=== PATIENT | male | born 1945 | race Caucasian/White ===

== ENCOUNTER 2016-12-12 08:17 | Outpatient (CLI) | payer MEDICARE | END 2016-12-12 08:18 | disposition home or self-care (01) | DX: Z00.00 Encounter for general adult medical examination without abnormal findings (principal); R05 Cough; Z12.11 Encounter for screening for malignant neoplasm of colon; Z12.12 Encounter for screening for malignant neoplasm of rectum; Z12.39 Encounter for other screening for malignant neoplasm of breast; R33.0 Drug induced retention of urine; M79.644 Pain in right finger(s); R53.83 Other fatigue; R06.7 Sneezing; Z79.899 Other long term (current) drug therapy; I10 Essential (primary) hypertension; I34.1 Nonrheumatic mitral (valve) prolapse; Z87.11 Personal history of peptic ulcer disease; M48.06 Spinal stenosis, lumbar region; E78.3 Hyperchylomicronemia; B07.0 Plantar wart; F32.9 Major depressive disorder, single episode, unspecified; J44.9 Chronic obstructive pulmonary disease, unspecified; J84.10 Pulmonary fibrosis, unspecified ==

== ENCOUNTER 2016-12-24 08:00 | Outpatient (CLI) | payer MEDICARE | END 2016-12-24 08:01 | disposition home or self-care (01) | DX: Z00.00 Encounter for general adult medical examination without abnormal findings (principal); Z87.11 Personal history of peptic ulcer disease; Z12.11 Encounter for screening for malignant neoplasm of colon; Z12.12 Encounter for screening for malignant neoplasm of rectum; R33.0 Drug induced retention of urine; M79.644 Pain in right finger(s); R53.83 Other fatigue; R05 Cough; R06.7 Sneezing; Z79.899 Other long term (current) drug therapy; I10 Essential (primary) hypertension; I25.10 Atherosclerotic heart disease of native coronary artery without angina pectoris; I24.1 Dressler's syndrome; M48.06 Spinal stenosis, lumbar region; E78.3 Hyperchylomicronemia; B07.0 Plantar wart; F32.9 Major depressive disorder, single episode, unspecified ==

== ENCOUNTER 2017-01-28 08:00 | Outpatient (CLI) | payer MEDICARE | END 2017-01-28 23:59 | disposition home or self-care (01) | DX: R19.5 Other fecal abnormalities (principal) ==

== ENCOUNTER 2017-01-31 08:00 | Outpatient (CLI) | payer MEDICARE | END 2017-01-31 23:59 | DX: R19.5 Other fecal abnormalities (principal) ==

== ENCOUNTER 2017-02-04 08:00 | Outpatient (CLI) | payer MEDICARE | END 2017-02-04 08:01 | disposition home or self-care (01) | DX: R19.5 Other fecal abnormalities (principal) ==

== ENCOUNTER 2017-04-30 18:56 | Outpatient (CLI) | payer MEDICARE ==
--- NOTE | 2017-05-01 14:36 | Ultrasound Report ---
REVISED: THIS REPORT WAS ORIGINALLY SIGNED ON 05/01/2017 @ 1558 ORDERS LINKED ON 05/08/2017 BILATERAL LOWER EXTREMITY ARTERIAL DUPLEX WITH ANKLE-BRACHIAL INDICES: 2016 CLINICAL INDICATION: Leg fatigue, coldness. TECHNIQUE: Real-time sonographic vascular imaging was performed by the plating equipment tender through the bilateral lower extremities utilizing both color-flow and Doppler flow analysis. Multiple sales representative door to door static images were saved for review. RIGHT SIDE SITE PSV WAVEFORM STEN JULIA -- -- -- MAO -- -- -- SANAM -- -- -- CONCETTA -- -- -- EIA -- -- -- PIN INSERTER REGULATOR 101 Tri -- PSFA 163 Meade -- MSFA 74 Tri -- DSFA 103 Bi -- PFA 80 Meade -- POP 30 Bi -- JYOTSNA 47 Bi/Meade -- FAMILY LAW PARALEGAL 47 Bi -- PER 33 Bi/Meade -- DPA 24 Bi -- LEFT SIDE SITE PSV WAVEFORM STEN CONCETTA -- -- -- EIA -- -- -- PIN INSERTER REGULATOR 103 Bi -- PSFA 66 Meade -- MSFA 26 Meade -- DSFA 47 Meade -- PFA 169 Meade -- POP 17 Meade -- JYOTSNA 8.0 Meade -- FAMILY LAW PARALEGAL 2.3 Meade -- PER 9.2 Meade -- DPA 10.0 Meade -- SYSTOLIC PRESSURES RIGHT LEFT BRACHIAL ARTERY 131/72 130/57 POSTERIOR TIBIAL ARTERY 125/75 86/49 ANTERIOR TIBIAL ARTERY -- -- PERONEAL ARTERY -- -- ANKLE/ARM INDEX .95 .65 FINDINGS: RIGHT LEG: Waveforms are variable. Moderate calcified plaquing is again seen. There is no evidence of a focal velocity increase to suggest a hemodynamically significant arterial stenosis. LEFT LEG: Waveforms are predominately monophasic. Calcified plaque is again seen. There is no evidence of a focal velocity increase to suggest a hemodynamically significant stenosis. Moderate calcified plaquing is again seen. FRANKY on the right is normal measuring 0.95, and is decreased on the left measuring 0.65. IMPRESSION: DECREASED LEFT FRANKY, WITH PREDOMINATELY MONOPHASIC WAVEFORMS, SUGGESTIVE OF INFLOW DISEASE IN THE LEFT ILIAC SYSTEM. NO EVIDENCE OF A FOCAL HEMODYNAMICALLY SIGNIFICANT ARTERIAL STENOSIS IN EITHER LEG. MTDD
== END 2017-04-30 18:57 | disposition home or self-care (01) ==
LOC: DI 18:56
PROVIDERS: ATTEND Internal Medicine
DX: M62.81 Muscle weakness (generalized) (principal); R20.9 Unspecified disturbances of skin sensation
CPT/HCPCS: 93922; 93925

== ENCOUNTER 2017-06-28 11:52 | Outpatient (CLI) | payer MEDICARE | END 2017-06-28 11:53 | disposition home or self-care (01) | LOC: DI 11:52 | PROVIDERS: ATTEND Internal Medicine | DX: Z53.9 Procedure and treatment not carried out, unspecified reason (principal) ==

== ENCOUNTER 2017-06-28 13:18 | Outpatient (CLI) | payer MEDICARE ==
--- NOTE | 2017-06-28 13:59 | XRAY Preliminary Report ---
Exam: XR Sacrum/Coccyx IMPRESSION: No significant abnormality. [facility] SITE ID: [id number]
--- NOTE | 2017-06-28 14:15 | XRAY Report ---
EXAM: SACRUM AND COCCYX RADIOGRAPHY EXAM DATE: 06/28/2017 01:49 PM. HISTORY: Coccydynia for 2 days, no known trauma. COMPARISONS: None. TECHNIQUE: 3 views. FINDINGS: Alignment: Normal. The sacrum and coccyx are normally aligned. Bones: Normal. No fracture or bone lesion. Joints: Mild degenerative changes both sacroiliac joints. Minimal narrowing of both hip joints. Mild degenerative changes L5-S1. Soft Tissues: Unremarkable. IMPRESSION: No significant abnormality. [facility] Referring Provider Line: [phone] SITE ID: [id number]
== END 2017-06-28 13:19 | disposition home or self-care (01) ==
LOC: DI 13:18
PROVIDERS: ATTEND Internal Medicine
DX: M53.3 Sacrococcygeal disorders, not elsewhere classified (principal)
CPT/HCPCS: 72220

== ENCOUNTER 2018-01-21 16:26 | Outpatient (CLI) | payer MEDICARE ==
--- NOTE | 2018-01-21 18:14 | MRI Report ---
EXAM: LEFT SHOULDER MRI WITHOUT CONTRAST EXAM DATE: 01/21/2018 05:06 PM. CLINICAL HISTORY: Left shoulder pain. COMPARISON: 08/24/2011. TECHNIQUE: Multiplanar, multisequence T1-weighted and fluid-sensitive sequences of the shoulder witho ut contrast. Other: None. FINDINGS: Acromioclavicular Region: The acromion is postoperative undersurface type I. Patient status post [facility] ord procedure. The coracoacromial and coracoclavicular ligaments are intact. Small amount of bursal f luid is present. Glenohumeral Region: No subluxation. No effusion or loose bodies. The articular cartilage is unremark able. The glenohumeral ligaments and joint capsule are unremarkable. Bone Marrow: No fracture, marrow edema or bone lesions. Labrum: The labrum is unremarkable on this nonarthrographic study. Musculature/Rotator Cuff: Since the comparison study, repair of rotator cuff tear. Distal supraspinat us tendon is thin but intact. Some artifact present from surgical staple. Subscapularis, supraspinatu s and teres minor attachments appear normal. No proximal muscular edema or fatty atrophy. Biceps Tendon: The long head of the biceps tendon and biceps roge are intact. Other: The subcutaneous tissues are unremarkable. IMPRESSION: 1. Postoperative type I osseous acromion shape. Patient is status post Madhavi procedure. Small amoun t of bursal fluid is present. The glenohumeral joint is otherwise unremarkable. No fractures. Normal labrum. 2. Previous surgical repair of rotator cuff tear. Distal supraspinatus tendon is thin but intact. Rem ainder of the rotator cuff appears unremarkable. 3. Long head of biceps appears unremarkable as well. [facility] MUSCULOSKELETAL RADIOLOGY SECTION Referring Provider Line: [phone] SITE ID: [id number]
== END 2018-01-21 16:27 | disposition home or self-care (01) ==
LOC: DI 16:26
PROVIDERS: ATTEND Internal Medicine
DX: M25.512 Pain in left shoulder (principal)

== ENCOUNTER 2018-07-04 06:12 | Outpatient (CLI) | payer MEDICARE ==
[2018-07-04] MEDS ORDERED: IOPAMIDOL-300 100 ML VIAL ONE (06:39)
[2018-07-04] MEDS ORDERED: IOPAMIDOL-300 50 ML VIAL ONE (06:39)
[2018-07-04 06:46] LABS: CREATININE 0.8 mg/dL (0.6-1.2)
[2018-07-04] MEDS ORDERED: IOPAMIDOL-300 100 ML VIAL IVP ONE (07:51)
[2018-07-04] MEDS ORDERED: IOPAMIDOL-300 50 ML VIAL PO ONE (07:51)
--- NOTE | 2018-07-04 13:36 | CT Report ---
Procedure Date: 07/04/2018 Accession Number: [id number] / [id number] Procedure: CT - Chest W/ CPT Code: FULL RESULT: EXAM: Chest W/ DATE: 07/04/2018 7:48 AM CLINICAL HISTORY: CONFUSION,WEIGHT LOSS COMPARISON: 12/03/2013. TECHNIQUE: Routine helical CT imaging was performed through the chest. IV contrast: 100 mL Isovue 300. Reconstructions: Coronal and sagittal. In accordance with CT protocol optimization, one or more of the following dose reduction techniques were utilized for this exam: automated exposure control, adjustment of mA and/or KV based on patient size, or use of iterative reconstructive technique. FINDINGS: Lungs/Pleura: A previously 5 mm peripheral superior segment of the left lobe lung nodule has progressed to a 1.4 x 0.9 cm irregular nodule with spiculations. Other well rounded nodules in the left upper lobe measuring up to 8 mm are stable. Advanced emphysematous changes of progressed. Apical scarring has progressed. No pleural effusion or pneumothorax. Mild atherosclerosis of the aorta and moderate atherosclerosis of the coronary arteries. CT appearance suggestive of eccentric left ventricular hypertrophy. Normal caliber main pulmonary artery. No thoracic lymphadenopathy. 50% anterior loss of height with compression fracture of T8 is stable. 25% loss of height which compression fracture of T10 is stable. No aggressive osseous lesions. IMPRESSION: Interval growth of a left lung nodule now 1.4 cm, suspicious. Biopsy or PET/CT recommended. Progression of emphysema. Atherosclerotic disease including coronaries. Question eccentric left ventricular hypertrophy, correlate to cardiac status and echocardiogram if applicable. Stable thoracic compression fractures, T8 and T10. [facility]
--- NOTE | 2018-07-04 13:41 | CT Report ---
Procedure Date: 07/04/2018 Accession Number: [id number] / [id number] Procedure: CT - Head W/O CPT Code: FULL RESULT: EXAM: Head W/O DATE: 07/04/2018 7:48 AM CLINICAL HISTORY: CONFUSION,WEIGHT LOSS COMPARISON: None. TECHNIQUE: Multiaxial CT images were obtained from the foramen magnum to the vertex. IV contrast: None. Reformats: Coronal. In accordance with CT protocol optimization, one or more of the following dose reduction techniques were utilized for this exam: automated exposure control, adjustment of mA and/or KV based on patient size, or use of iterative reconstructive technique. FINDINGS: Parenchyma: No intraparenchymal hemorrhage. No evidence of midline shift, or CT findings of infarction. Goins-white differentiation is distinct. Extraaxial Spaces: Normal for age. No subdural or epidural collections identified. Ventricles: Normal in size and position. Sinuses: Asymmetric sinusitis including mucoperiosteal thickening, demineralization and complete opacification of the right maxillary sinus with extension to the ethmoid air cells. The left maxillary sinus and frontal sinuses as well as sphenoid sinuses are essentially spared. Bones: No evidence of fracture or calvarial defect. Other: None. IMPRESSION: No intra-axial or extra-axial hemorrhage and no midline shift or significant mass effect. Markedly asymmetric opacification of the sinuses, direct visualization to exclude a mass lesion is recommended. [facility]
--- NOTE | 2018-07-04 13:49 | CT Report ---
Procedure Date: 07/04/2018 Accession Number: [id number] / [id number] Procedure: CT - Abdomen/Pelvis W/ CPT Code: FULL RESULT: EXAM: Abdomen/Pelvis W/ DATE: 07/04/2018 7:48 AM CLINICAL HISTORY: CONFUSION,WEIGHT LOSS COMPARISON: 07/30/2011. TECHNIQUE: Routine helical CT imaging was performed through the abdomen and pelvis. IV contrast: 100 mL of Isovue 300.. Enteric contrast: Yes. Reconstructions: Coronal and sagittal. In accordance with CT protocol optimization, one or more of the following dose reduction techniques were utilized for this exam: automated exposure control, adjustment of mA and/or KV based on patient size, or use of iterative reconstructive technique. FINDINGS: The liver, gallbladder, adrenal glands, kidneys, spleen and pancreas appear unremarkable with the exception of a left renal hypodensity which is too small to characterize. There is advanced abdominal atherosclerotic disease including focal ectasia of up to 2.6 cm infrarenally. There is no free fluid or free air. There is no bowel obstruction. There is no lymphadenopathy. There is no pelvic mass. IMPRESSION: Abdominal atherosclerotic disease with infrarenal ectatic aorta, up to 2.6 cm. [facility]
== END 2018-07-04 06:13 | disposition home or self-care (01) ==
LOC: LAB 06:12
PROVIDERS: ATTEND Internal Medicine
DX: R63.4 Abnormal weight loss (principal); R41.0 Disorientation, unspecified; I77.811 Abdominal aortic ectasia; I65.23 Occlusion and stenosis of bilateral carotid arteries; R91.1 Solitary pulmonary nodule; J43.9 Emphysema, unspecified
CPT/HCPCS: 36415; 70450; 71260; 74177; 82565; Q9967

== ENCOUNTER 2018-10-28 11:20 | Emergency (ER) | payer MEDICARE ==
[2018-10-28 12:05] LABS: BASOPHILS # (AUTO) 0.1 10^3/uL (0.0-0.1); BASOPHILS % (AUTO) 1.2 %; EOSINOPHILS # (AUTO) 0.7 10^3/uL (0.0-0.7); EOSINOPHILS % (AUTO) 7.7 %; HGB - HEMOGLOBIN 12.9 g/dL (14.0-18.0); LYMPHOCYTES # (AUTO) 1.8 10^3/uL (1.5-3.5); LYMPHOCYTES % (AUTO) 18.9 %; MEAN CORPUSCULAR HEMOGLOBIN 31.8 pg (27.0-31.0); MEAN CORPUSCULAR HGB CONC 34.7 g/dL (32.0-36.0); MEAN CORPUSCULAR VOLUME 91.8 fL (80.0-94.0); MEAN PLATELET VOLUME 6.7 fL (7.4-11.4); MONOCYTES # (AUTO) 0.8 10^3/uL (0.0-1.0); MONOCYTES % (AUTO) 8.5 %; NEUTROPHILS % (AUTO) 63.7 %; PLT - PLATELET COUNT 354 10^3/uL (130-450); RED BLOOD COUNT 4.06 10^6/uL (4.70-6.10); RED CELL DISTRIBUTION WIDTH 14.7 % (12.0-15.0); WHITE BLOOD COUNT 9.4 x10^3/uL (4.8-10.8)
[2018-10-28 12:21] LABS: ALBUMIN 3.5 g/dL (3.2-5.5); ALBUMIN/GLOBULIN RATIO 0.9 (1.0-2.2); BILIRUBIN,TOTAL 0.8 mg/dL (0.2-1.0); CALCIUM 8.9 mg/dL (8.5-10.3); CREATININE 0.9 mg/dL (0.6-1.2); TOTAL PROTEIN 7.3 g/dL (6.7-8.2)
--- NOTE | 2018-10-28 12:31 | XRAY Report ---
Reason: soa/ chest pain Procedure Date: 10/28/2018 Accession Number: [id number] / [id number] Procedure: XR - Chest 2 View X-Ray CPT Code: 16140 FULL RESULT: EXAM: CHEST RADIOGRAPHY EXAM DATE: 10/28/2018 12:07 PM. CLINICAL HISTORY: Soa/ chest pain. COMPARISON: 12/12/2016. TECHNIQUE: 2 views. FINDINGS: Lungs/Pleura: Hyperlucent upper lungs compatible with COPD again seen. Biapical scarring again noted. New left midlung perihilar consolidation is seen with a subtle associated opacity. Small left pleural effusion is also seen, new compared to prior. No pneumothorax. Mediastinum: Stable heart size and mediastinum. Atheromatous calcification of the aortic arch. Other: None. IMPRESSION: 1. New left perihilar consolidation and adjacent mid lung subtle opacity could reflect infection. Follow-up to radiographic resolution is recommended. 2. New small left pleural effusion also seen. 3. Unchanged COPD. [facility]
[2018-10-28] MEDS ORDERED: MORPHINE 2 MG/ML CARPUJECT IVP STA (12:35)
--- NOTE | 2018-10-28 12:37 | ED Physician Documentation ---
PD HPI CHEST PAIN - Stated complaint Stated Complaint: CHEST PX/POST STENT - Chief complaint Chief Complaint: Cardiac - History obtained from History obtained from: Patient, Family () - History of Present Illness Timing - onset: Today (This is a 73-year-old gentleman who on the 15th of this month had a partial left lower lobe lobectomy done using minimally invasive means by Dr. Cynthia Aguirre. He had known conservatively managed coronary disease but it sounds like he had some sort of OR and was stented to the right coronary artery for a 97% lesion the next day by Dr. Phelps. He has been home for a week, his pain was always controlled by oxycodone but today it was uncontrolled and increased and more short of breath and fatigue and more of a pressure on the left chest and he was referred in by his instrument specialist) Review of Systems Ten Systems: 10 systems reviewed and negative Constitutional: reports: Fatigue. denies: Fever, Chills Cardiac: reports: Chest pain / pressure. denies: Palpitations, Pedal edema, Calf pain Respiratory: reports: Dyspnea. denies: Cough, Hemoptysis, Wheezing PD PAST MEDICAL HISTORY - Past Medical History Cardiovascular: Hypertension Respiratory: COPD, Other Endocrine/Autoimmune: None GI: GERD, Ulcers : None Psych: Depression Musculoskeletal: Osteoarthritis, Scoliosis, Chronic back pain Derm: None - Past Surgical History General: Colonoscopy Ortho: Rotator cuff repair, Spine surgery - Present Medications Home Medications: Ambulatory Orders Medication Instructions Recorded Confirmed Acetaminophen [Tylenol Extra 500 mg PO TID 08/12/14 08/12/14 Strength] Ginseng [Panax Ginseng] 100 mg PO DAILY 08/12/14 08/12/14 Lisinopril 5 mg PO DAILY 08/12/14 08/12/14 Multivit-Min/FA/Lycopene/Lut 1 cap PO DAILY 08/12/14 08/12/14 [Centrum Silver Tablet] Omeprazole 40 mg PO BID 08/12/14 08/12/14 Saw Holder 80 mg PO DAILY 08/12/14 08/12/14 buPROPion [Wellbutrin Sr] 100 mg PO BID 08/12/14 08/12/14 diphenhydrAMINE [Benadryl] 25 mg PO Q4-6H 08/12/14 08/12/14 raNITIdine [Zantac] 150 mg PO DAILY 08/12/14 08/12/14 traZODone [Desyrel] 50 mg PO ONCE 08/12/14 08/12/14 Levofloxacin [Levaquin] 750 mg PO DAILY #7 tablet 10/28/18 - Allergies Allergies/Adverse Reactions: Allergies Allergy/AdvReac Type Severity Reaction Status Date / Time NSAIDS (Non-Steroidal AdvReac Nausea Verified 10/28/18 11:42 Anti-Inflamma PD ED PE NORMAL - Vitals Vital signs reviewed: Yes - General General: Alert and oriented X 3, No acute distress - HEENT HEENT: PERRL, EOMI - Neck Neck: Supple, no meningeal sign, No bony TTP - Cardiac Cardiac: RRR, No murmur - Respiratory Respiratory: No respiratory distress, Clear bilaterally, Other (Surgical incisions on the left side is sutured without evidence of infection.) - Abdomen Abdomen: Soft, Non tender - Derm Derm: Normal color, Warm and dry, No rash - Extremities Extremities: No edema, No calf tenderness / cord - Neuro Neuro: Alert and oriented X 3, Normal speech Results - Vitals Vitals: Vital Signs - 24 hr 10/28/18 11:39 Temperature 36.4 C L Heart Rate 95 Respiratory 16 Rate Blood Pressure 125/69 O2 Saturation 99 Oxygen O2 Source Room air - EKG (time done) 1131 Rate: Rate (enter#) (62) Rhythm: NSR (with PVC) [place]: Normal Intervals: Normal [place] QRS: Normal Ischemia: Q waves (anterior), Non specific changes Computer interpretation: Agree with computer - Labs Labs: Laboratory Tests 10/28/18 10/28/18 10/28/18 11:50 11:50 11:50 WBC 9.4 RBC 4.06 L Hgb 12.9 L Hct 37.3 L MCV 91.8 MCH 31.8 H MCHC 34.7 RDW 14.7 Plt Count 354 MPV 6.7 L Neut # (Auto) 6.0 Lymph # (Auto) 1.8 [place] # (Auto) 0.8 Eos # (Auto) 0.7 Baso # (Auto) 0.1 Absolute Nucleated RBC 0.01 Nucleated RBC % 0.1 Sodium 131 L Potassium 4.0 Chloride 98 L Carbon Dioxide 26 Anion Gap 7.0 BUN 12 Creatinine 0.9 Estimated GFR (MDRD) 83 L Glucose 108 H Calcium 8.9 Total Bilirubin 0.8 AST 19 ALT 19 Alkaline Phosphatase 74 Troponin I < 0.04 Total Protein 7.3 Albumin 3.5 Globulin 3.8 Albumin/Globulin Ratio 0.9 L Lipase 29 10/28/18 12:55 WBC RBC Hgb Hct MCV MCH MCHC RDW Plt Count MPV Neut # (Auto) Lymph # (Auto) [place] # (Auto) Eos # (Auto) Baso # (Auto) Absolute Nucleated RBC Nucleated RBC % Sodium Potassium Chloride Carbon Dioxide Anion Gap BUN Creatinine Estimated GFR (MDRD) Glucose Calcium Total Bilirubin AST ALT Alkaline Phosphatase Troponin I < 0.04 Total Protein Albumin Globulin Albumin/Globulin Ratio Lipase - Rads (name of study) 2v chest Radiology: EMP read contemporaneously (small L pleural effusion) CTA chest Radiology: EMP read contemporaneously (No PE, emphysema, postoperative changes with tissue density that may Represent normal postoperative changes or infiltrate with consolidation in the left lower lobe of the lung and a small left pleural effusion.) PD MEDICAL DECISION MAKING - ED course ED course: 73-year-old gentleman with increased postoperative pain. He does have coronary disease and was stented recently. PE is also in the differential. I spoke with his instrument specialist, Dr. Phelps would like a 4-hour troponin and if negative does not need anything else from a coronary perspective today. The CTA of the chest does not show PE. There is a potential left lower lobe pneumonia. He has been coughing a little more over the last day but he does not have a white count. We will start him on antibiotics. Departure - Departure Clinical Impression: Post-operative pain Chest pain Qualifiers: Chest pain type: chest pain on breathing Qualified Code(s): R07.1 - Chest pain on breathing Pneumonia Qualifiers: Pneumonia type: due to unspecified organism Laterality: left Lung location: lower lobe of lung Qualified Code(s): J18.1 - Lobar pneumonia, unspecified organism Condition: Good Record reviewed to determine appropriate education?: Yes Instructions: Pneumonia Dc, ED Chest Pain Atypical Unkn Cause Prescriptions: Levofloxacin [Levaquin] 750 mg PO DAILY #7 tablet Comments: Call your doctor to arrange a follow-up appointment, make the next available appointment. In the interim, return anytime if worse or if new symptoms develop.
[2018-10-28] MEDS ORDERED: IOVERSOL 320 100 ML VIAL IVP ONE ×2 (13:09→17:33)
--- NOTE | 2018-10-28 14:17 | CT Report ---
Reason: Chest pain, post LLL surgery Procedure Date: 10/28/2018 Accession Number: [id number] / [id number] Procedure: CT - Chest Angio (PE) CPT Code: FULL RESULT: EXAM: CT ANGIOGRAM CHEST EXAM DATE: 10/28/2018 01:34 PM. CLINICAL HISTORY: Chest pain, post LLL surgery. COMPARISON: 12/03/2013. TECHNIQUE: Routine helical imaging was performed through the chest in the pulmonary arterial phase. IV Contrast: ISOVUE 300 80mL. Reconstructions: Coronal 3-D MIP reconstructions.Sagittal and coronal. In accordance with CT protocol optimization, one or more of the following dose reduction techniques were utilized for this exam: automated exposure control, adjustment of mA and/or KV based on patient size, or use of iterative reconstructive technique. FINDINGS: Pulmonary Arteries: Diagnostic quality: Adequate through the segmental arteries. No evidence for acute or chronic pulmonary emboli. Lungs/Pleura: Extensive emphysematous changes are noted bilaterally there are interval postoperative changes of the left lower lobe of the lung. Increased soft tissue density is noted adjacent to the surgical robert. This may represent an infiltrate or postop changes. Consolidation of the left lower lobe of the lung is noted. There is a small left pleural effusion. No pneumothorax is seen. There is no evidence of a right pleural effusion. Mediastinum: No mediastinal mass is identified. There is atherosclerosis of the aorta and coronary arteries. Upper Abdomen: The visualized upper abdominal organs demonstrate a normal noncontrast CT appearance. IMPRESSION: No evidence of a pulmonary embolus. Emphysematous changes of the lungs. Postoperative changes of the left lower lobe of the lung with increased soft tissue density adjacent to the suture line that may represent normal postop changes or an infiltrate. Consolidation in the left lower lobe of the lung. Small left pleural effusion. [facility]
[2018-10-28] MEDS ORDERED: levoFLOXacin 250 MG TABLET PO STA (14:44)
[2018-10-28 16:43] VITALS: BP 118/77
== END 2018-10-28 17:10 | disposition home or self-care (01) ==
LOC: ED 11:20
DX: G89.18 Other acute postprocedural pain (principal); R07.1 Chest pain on breathing; R94.31 Abnormal electrocardiogram [ECG] [EKG]; J18.1 Lobar pneumonia, unspecified organism; I25.10 Atherosclerotic heart disease of native coronary artery without angina pectoris; I10 Essential (primary) hypertension; Z90.2 Acquired absence of lung [part of]; Z95.5 Presence of coronary angioplasty implant and graft
CPT/HCPCS: 36415; 71046; 71275; 80053; 83690; 84484; 85025; 93005; 96374; 99284; A9270; Q9967

== ENCOUNTER 2018-12-17 10:29 | Outpatient (CLI) | payer MEDICARE | END 2018-12-17 10:30 | disposition home or self-care (01) | LOC: NS 10:29 | PROVIDERS: ATTEND Internal Medicine | DX: Z71.3 Dietary counseling and surveillance (principal); R63.4 Abnormal weight loss | CPT/HCPCS: 97802 ==

== ENCOUNTER 2018-12-26 11:29 | Outpatient (CLI) | payer MEDICARE ==
--- NOTE | 2018-12-26 15:03 | XRAY Report ---
Reason: PAIN L ANTERIOR RIBS Procedure Date: 12/26/2018 Accession Number: [id number] / [id number] Procedure: XR - Chest 2 View X-Ray CPT Code: 17971 FULL RESULT: EXAM: CHEST RADIOGRAPHY EXAM DATE: 12/26/2018 11:56 AM. CLINICAL HISTORY: Pain, left anterior ribs. COMPARISON: Chest 2 view 10/28/2018 11:59 AM Chest angio 10/28/2018 1:10 PM. TECHNIQUE: 2 views. FINDINGS: Lungs/Pleura: Postsurgical changes are seen in the mid left lung. No consolidative focal opacities evident. No pleural effusion. No pneumothorax. Increased lung volumes with flattened diaphragms consistent with obstructive lung disease, similar to prior. Mediastinum: Heart and mediastinal contours are unremarkable. Other: There is a questionable deformity of the posterolateral eighth and ninth ribs. Not definitely seen previously. IMPRESSION: Questionable posterolateral deformities of the left eighth and ninth ribs. Anterior ribs are not well seen. Obstructive lung disease. Consideration for rib series versus CT if imaging clarification is needed. [facility]
== END 2018-12-26 11:30 | disposition home or self-care (01) ==
LOC: DI 11:29
PROVIDERS: ATTEND Internal Medicine
DX: R07.82 Intercostal pain (principal); J44.9 Chronic obstructive pulmonary disease, unspecified
CPT/HCPCS: 71046

== ENCOUNTER 2019-03-19 16:58 | Outpatient (CLI) | payer MEDICARE ==
--- NOTE | 2019-03-20 08:24 | XRAY Report ---
Reason: RIGHT RIB PAIN,ANTERIOR Procedure Date: 03/19/2019 Accession Number: [id number] / [id number] Procedure: XR - Ribs w/PA Chest RT CPT Code: FULL RESULT: EXAM: RIGHT RIB RADIOGRAPHY EXAM DATE: 03/19/2019 05:39 PM. CLINICAL HISTORY: RIGHT RIB Pain, anterior. FOLLOW-UP POSSIBLE LEFT RIB FRACTURE. COMPARISON: CHEST 2 VIEW 12/26/2018 11:44 AM. TECHNIQUE: 1 view of the chest and 2 views of the ribs. FINDINGS: Bones: No evidence of rib fracture. Lungs: No evidence of pneumothorax. Mild bilateral basilar interstitial lung disease. Symmetric biapical scarring. No other pulmonary abnormality. Mediastinum: Heart and mediastinal contours are unremarkable. Other: Moderate S-shaped thoracolumbar scoliosis. IMPRESSION: 1. No acute cardiopulmonary abnormality. See above discussion of chronic changes. 2. No evidence of rib fracture. [facility]
== END 2019-03-19 16:59 | disposition home or self-care (01) ==
LOC: DI 16:58
PROVIDERS: ATTEND Internal Medicine
DX: R07.81 Pleurodynia (principal)

== ENCOUNTER 2019-04-09 08:37 | Outpatient (CLI) | payer MEDICARE ==
--- NOTE | 2019-04-09 10:32 | CT Report ---
Reason: SQUAMOUS CELL CARCINOMA OF LEFT LUNG Procedure Date: 04/09/2019 Accession Number: [id number] / [id number] Procedure: CT - CHEST WO CPT Code: FULL RESULT: EXAM: CT CHEST EXAM DATE: 04/09/2019 08:56 AM. CLINICAL HISTORY: Squamous cell carcinoma of left lung. COMPARISONS: CHEST ANGIO 10/28/2018 1:10 PM. TECHNIQUE: Routine helical CT imaging was performed through the chest. IV contrast: None. Reconstructions: Coronal and sagittal. In accordance with CT protocol optimization, one or more of the following dose reduction techniques were utilized for this exam: automated exposure control, adjustment of mA and/or KV based on patient size, or use of iterative reconstructive technique. FINDINGS: Lungs/Pleura: There is moderate to severe emphysema with biapical scarring and postsurgical changes in the left lower lobe. A small amount of peripheral fine interstitial thickening is seen at both lung bases without honeycombing. There are areas of pleural nodularity, most pronounced is posterior pleural thickening near the left lung apex with calcification as seen on image 31, decreased from prior and possibly postsurgical in nature. Redemonstrated are innumerable bilateral pulmonary nodules, most of which measure 5 mm or less. The following nodules appear prominent on review: 4 mm nodule near the right lung apex on image 14 series 4, stable. Right lower lobe 6 mm nodule just above the diaphragm on image 61, comparison is difficult but the finding is likely stable. Left lower lobe 0.7 x 0.8 cm nodule on image 57, previously measured as 0.5 x 0.7 cm. No recurrent mass is seen in the region of previous surgery. There is no pleural effusion, pneumothorax or lobar consolidation. Mediastinum: Severe three-vessel coronary calcifications. Moderately atherosclerotic aortic arch. No hilar or mediastinal lymphadenopathy is detected. Bones: A wedge compression fracture of T8 appears stable compared to prior. No aggressive osseous lesion is seen. Visualized Abdomen: The lowest abdominal image demonstrates an atherosclerotic abdominal aorta with ectasia. Other: None. IMPRESSION: Bilateral pulmonary nodules as described with potential interval enlargement of a 0.8 cm nodule at the left lung base. Otherwise, there is no evidence of recurrence in the region of prior surgery. Ectatic widening of the infrarenal abdominal aorta on the lowest CT image, recommend screening for abdominal aortic aneurysm. [facility]
== END 2019-04-09 08:38 | disposition home or self-care (01) ==
LOC: DI 08:37
PROVIDERS: ATTEND Physician Assistant Surgical
DX: C34.92 Malignant neoplasm of unspecified part of left bronchus or lung (principal); J43.9 Emphysema, unspecified
CPT/HCPCS: 71250

== ENCOUNTER 2019-07-21 09:26 | Outpatient (CLI) | payer MEDICARE ==
--- NOTE | 2019-07-22 09:58 | CT Report ---
Reason: MALIGNANT NEOPLASM OF LOWER OF LEFT LUNG Procedure Date: 07/21/2019 Accession Number: [id number] / [id number] Procedure: CT - CHEST WO CPT Code: FULL RESULT: EXAM: CT CHEST EXAM DATE: 07/21/2019 09:53 AM. CLINICAL HISTORY: Malignant neoplasm of lower of left lung. COMPARISONS: CHEST W/O 04/09/2019 8:52 AM CHEST ANGIO 10/28/2018 1:10 PM CHEST W/ 12/03/2013 8:52 AM CHEST W/ 07/04/2018 7:31 AM. TECHNIQUE: Routine helical CT imaging was performed through the chest. IV contrast: None. Reconstructions: Coronal and sagittal. In accordance with CT protocol optimization, one or more of the following dose reduction techniques were utilized for this exam: automated exposure control, adjustment of mA and/or KV based on patient size, or use of iterative reconstructive technique. FINDINGS: Lungs/Pleura: Stable appearance of moderate to severe centrilobular and panacinar emphysema greatest of the upper lobes. Stable parenchymal fibrosis involving the posterior aspects of the right lower lobe. Stable operative changes status post wedge resection from the superior segment of left lower lobe. Stable adjacent pleural and mediastinal thickening, likely related to radiation changes. Stable pleural-parenchymal scarring changes are noted in the apices. Stable appearance of multiple calcified peripheral pulmonary nodules (all less than 3 mm) greatest in the lung bases. There is an 8 mm oval nodule in the left lung base on image 59 series 4, corresponding to a stable 8 mm nodule seen on preoperative films dating back to 2014. Position is displaced medial/posterior compared to 2014 by interval operative/treatment changes. There is an adjacent 5 mm pulmonary nodule image 61 series 4 which is unchanged dating back to 10/28/2018 possibly also present in 2014. No new pulmonary nodules identified. Pulmonary vasculature is normal. No pericardial or pleural effusion. No pneumothorax. Mediastinum: No mediastinal masses or adenopathy. Stable calcific plaque noted origins of the great vessels. Severe three-vessel coronary artery calcium again noted. Bones: Stable anterior wedging compression T8 vertebral body. Visualized Abdomen: Stable ectasia bordering on aneurysmal dilatation of the proximal abdominal aorta at 2.9 cm. Other: None. IMPRESSION: 1. Stable exam findings as detailed including emphysema, areas of fibrosis and multiple calcific pulmonary nodules. Stable operative and treatment changes in the left lung with no evidence of recurrence. 2. Dominant 8 mm pulmonary nodule in the left lower lobe is unchanged since 2013 consistent with benign entity. Adjacent 5 mm pulmonary nodule is stable since 10/2018 and is also likely present since 2013. No new pulmonary nodules. 3. Severe three-vessel coronary artery calcium. 4. Borderline aneurysmal dilatation of the visualized proximal abdominal aorta. RADIA
== END 2019-07-21 09:27 | disposition home or self-care (01) ==
LOC: DI 09:26
PROVIDERS: ATTEND Physician Assistant Surgical
DX: Z08 Encounter for follow-up examination after completed treatment for malignant neoplasm (principal); J43.9 Emphysema, unspecified; J84.10 Pulmonary fibrosis, unspecified; R91.8 Other nonspecific abnormal finding of lung field; I25.10 Atherosclerotic heart disease of native coronary artery without angina pectoris; Z85.118 Personal history of other malignant neoplasm of bronchus and lung
CPT/HCPCS: 71250

== ENCOUNTER 2019-08-23 07:10 | Outpatient (CLI) | payer MEDICARE ==
--- NOTE | 2019-08-25 12:14 | Ultrasound Report ---
Reason: PVD W/CLAUDICATION Procedure Date: 08/23/2019 Accession Number: [id number] / [id number] Procedure: US - Duplex Aorta Complete CPT Code: FULL RESULT: EXAM: AORTIC DOPPLER ULTRASOUND EXAM DATE: 08/23/2019 07:50 AM. CLINICAL HISTORY: PVD with claudication. COMPARISON: None. TECHNIQUE: Real-time sonographic imaging of retroperitoneal vascular structures, including color-flow, Doppler flow and spectral analysis was performed by the forest pathology teacher. Multiple employee representative static images were saved for review. FINDINGS: Aorta: The abdominal aorta was adequately visualized. There is fusiform ectasia of the infrarenal aorta measuring up to 2.7 x 2.9 cm. Diffuse atherosclerotic disease of the aorta is visualized throughout. Aorta: Proximal: Sagittal AP 2.7 x 2.5 cm. Mid: Transverse 2.7 x 2.9 cm. Distal: Transverse 1.8 x 2.4 cm. Plaque visualized: Yes. Iliacs: Right Iliac: Transverse 1.1 x 1.4 cm. Left Iliac: Transverse 1.1 x 1.1 cm. Doppler: Prox Aorta PSV: 100.5 cm/sec. Mid Aorta PSV: 74.0 cm/sec. Dist Aorta PSV: 77.9 cm/sec. Prox RCIA PSV: 146.8 cm/sec. Prox LCIA PSV: 155.7 cm/sec. Iliac Vessels: The visualized proximal common iliac arteries are normal in caliber. Other: None. IMPRESSION: Abdominal atherosclerosis with ectatic infrarenal abdominal aorta, up to 2.7 x 2.9 cm. RADIA
--- NOTE | 2019-08-25 12:24 | Ultrasound Report ---
Reason: PVD W/CLAUDICATION Procedure Date: 08/23/2019 Accession Number: [id number] / [id number] Procedure: US - Duplex Lwr Ext Arterial Bilat CPT Code: FULL RESULT: EXAM: Bilateral Lower Extremity Arterial Doppler Ultrasound EXAM DATE: 08/23/2019 07:56 AM. CLINICAL HISTORY: Peripheral vascular disease with claudication. COMPARISON: DUPLEX LWR EXT ARTERIAL BILAT 04/30/2017 7:39 PM. TECHNIQUE: Real-time sonographic vascular imaging was performed by the monitoring specialist, utilizing color-flow, Doppler flow, and spectral analysis. Multiple key account representative static images were saved for review. FINDINGS: Bilateral lower extremity Doppler interrogation is performed with grayscale, color Doppler and spectral Doppler. Grayscale imaging demonstrates diffuse echogenic and hypoechoic atherosclerotic disease throughout which occupies up to at least 50% of the lumen segmentally in the right GROUND CREWMAN, right distal SFA, visually greater than 70% in the right proximal posterior tibial artery. Similar morphologically prominent plaque is seen in the left GROUND CREWMAN, at the ostium of the profunda femoris on the left, mid left SFA. All sampled vessels are patent by color Doppler. Waveforms demonstrate preserved brisk arterial upstrokes right lower extremity with loss of the diastolic flow component at the level of the dorsalis pedis artery. Waveforms in the left lower extremity question nonvisualized inflow disease and demonstrate progressive deterioration below the knee with loss of diastolic component and subsequent mild delay in arterial upstroke, tendency toward tardus parvus flow at the level of the dorsalis pedis artery. The following waveforms and peak systolic velocities in centimeters per second are recorded. RIGHT: GROUND CREWMAN: 72.9 cm/sec. Biphasic waveform. SFA Proximal: 68.3 cm/sec. Monophasic waveform. SFA Mid: 80.9 cm/sec. Biphasic waveform. SFA Distal: 86.6 cm/sec. Biphasic waveform. PFA: 76.2 cm/sec. Monophasic waveform. Popliteal: 33.6 cm/sec. Biphasic waveform. JYOTSNA Distal: 14.2 cm/sec. Biphasic waveform. HOUSE PIPING INSPECTOR Distal: 57.9 cm/sec. Biphasic waveform. Peroneal Distal: 27.2 cm/sec. Biphasic waveform. DPA Distal: 11.4 cm/sec. Monophasic waveform. LEFT: GROUND CREWMAN: 54.4 cm/sec. Biphasic waveform. SFA Proximal: 25.7 cm/sec. Monophasic waveform. SFA Mid: 15.4 cm/sec. Monophasic waveform. SFA Distal: 18.2 cm/sec. Monophasic waveform. PFA: 46.6 cm/sec. Monophasic waveform. Popliteal: 18.1 cm/sec. Monophasic waveform. JYOTSNA Distal: 21.9 cm/sec. Monophasic waveform. HOUSE PIPING INSPECTOR Distal: 22.3 cm/sec. Monophasic waveform. Peroneal Distal: 12.4 cm/sec. Monophasic waveform. DPA Distal: 17.2 cm/sec. Monophasic waveform. IMPRESSION: Preserved three-vessel patency to the ankle with multifocal stenotic lesions which visually appear greater than 50% at multiple locations. Given deteriorations of waveforms especially in the left lower extremity, if the patient is a candidate for intervention, would recommend further characterization by CTA or lower extremity angiogram bilaterally. RADIA The call report notification system was initiated by Dr. Juice Colbert at 12:21 PM on 08/25/2019. ADDENDUM: 08/25/19 13:28 The above call report findings were discussed with Aracely Baker by Dr. Juice Colbert at 01:28 PM on 08/25/2019.
== END 2019-08-23 07:11 | disposition home or self-care (01) ==
LOC: DI 07:10
PROVIDERS: ATTEND Nurse Practitioner
DX: I73.9 Peripheral vascular disease, unspecified (principal); I70.0 Atherosclerosis of aorta; I77.811 Abdominal aortic ectasia
CPT/HCPCS: 93925; 93978

== ENCOUNTER 2019-10-06 08:12 | Outpatient (CLI) | payer MEDICARE ==
[2019-10-06 08:40] LABS: BASOPHILS # (AUTO) 0.1 10^3/uL (0.0-0.1); BASOPHILS % (AUTO) 1.2 %; EOSINOPHILS # (AUTO) 0.5 10^3/uL (0.0-0.7); EOSINOPHILS % (AUTO) 8.2 %; HGB - HEMOGLOBIN 14.5 g/dL (14.0-18.0); LYMPHOCYTES # (AUTO) 1.7 10^3/uL (1.5-3.5); LYMPHOCYTES % (AUTO) 30.5 %; MEAN CORPUSCULAR HEMOGLOBIN 31.4 pg (27.0-31.0); MEAN CORPUSCULAR HGB CONC 33.4 g/dL (32.0-36.0); MEAN CORPUSCULAR VOLUME 93.9 fL (80.0-94.0); MEAN PLATELET VOLUME 9.3 fL (7.4-11.4); MONOCYTES # (AUTO) 0.8 10^3/uL (0.0-1.0); MONOCYTES % (AUTO) 13.7 %; NEUTROPHILS # (AUTO) 2.6 10^3/uL (1.5-6.6); PLT - PLATELET COUNT 202 10^3/uL (130-450); RED BLOOD COUNT 4.62 10^6/uL (4.70-6.10); RED CELL DISTRIBUTION WIDTH 13.9 % (12.0-15.0); WHITE BLOOD COUNT 5.7 x10^3/uL (4.8-10.8)
[2019-10-06] MEDS ORDERED: IOVERSOL 320 100 ML VIAL IVP ONE ×3 (08:42→12:19)
[2019-10-06 08:48] LABS: CALCIUM 9.2 mg/dL (8.5-10.3); CREATININE 0.8 mg/dL (0.6-1.2)
--- NOTE | 2019-10-06 10:28 | Ultrasound Report ---
Reason: PERIPHERAL VENOUS DISEASE Procedure Date: 10/06/2019 Accession Number: [id number] / [id number] Procedure: US - Duplex Ext Veins Left CPT Code: Final Report FULL RESULT: EXAM: LEFT LOWER EXTREMITY VENOUS ULTRASOUND EXAM DATE: 10/06/2019 09:59 AM. CLINICAL HISTORY: Peripheral venous disease. COMPARISON: None. TECHNIQUE: Real-time sonographic vascular imaging was performed by the tree chipper through the lower extremity utilizing both color-flow and Doppler spectral analysis. Multiple chain sales representative static images were saved for review. FINDINGS: Common Femoral Vein (CFV): Normal. CFV-GSV Junction: Normal. Profunda Femoral Vein (PFV): Normal. Femoral Vein (FV) Prox: Normal. Femoral Vein (FV) Mid: Normal. Femoral Vein (FV) Dist: Normal. Popliteal Vein: Normal. Posterior Tibial Veins: Normal. Peroneal Veins: Normal. Focused and limited venous reflex examination is also performed by the interpreting physician. The great saphenous vein near the juncture measures up to 0.5 cm in caliber and is easily compressible throughout. Following release of cuff compression at the thigh, there is less than 0.3 seconds of reflux, essentially no reflux in the femoral vein. Similarly, no reflux is observed in the great saphenous vein. The posterior tibial vein measures approximately 0.2 cm. Other: None. IMPRESSION: No evidence for deep venous thrombosis. No pathologic reflex in femoral or great saphenous veins as examined. RADIA
--- NOTE | 2019-10-06 12:06 | CT Report ---
Reason: PERIPHERAL ARTERIAL DISEASE Procedure Date: 10/06/2019 Accession Number: [id number] / [id number] Procedure: CT - ANGIO ABD RUNOFF W/WO - B/L CPT Code: Final Report FULL RESULT: EXAM: CT ANGIOGRAM ABDOMEN AND PELVIS, WITH BILATERAL LOWER EXTREMITY ARTERY RUNOFF EXAM DATE: 10/06/2019 10:29 AM CLINICAL HISTORY: PERIPHERAL ARTERIAL DISEASE. COMPARISON: CHEST W/O 07/21/2019 9:50 AM. TECHNIQUE: Routine helical imaging was performed through the abdomen, pelvis and bilateral lower extremities in arterial phase. IV Contrast: OPTI 320 120ML. Reconstructions: Coronal, sagittal, and 3D MIP reconstructions were performed. In accordance with CT protocol optimization, one or more of the following dose reduction techniques were utilized for this exam: automated exposure control, adjustment of mA and/or KV based on patient size, or use of iterative reconstructive technique. FINDINGS: Vascular: Ectasia of the infrarenal abdominal aorta to a maximal caliber of 2.6 cm (5/80) noted. No aneurysm. Moderate foci of mixed calcified and noncalcified plaque seen in the abdominal area. The origin of the celiac artery, SMA, renal arteries is widely patent. Probable ostial stenosis of the origin of the ANDREW secondary to atherosclerotic plaque. Probable focal >50% stenosis of the right common iliac artery secondary to calcified plaque. Atherosc buttock plaque seen in the left common iliac arteries without evidence for flow-limiting stenosis. Similarly, calcified and noncalcified plaque seen in the external iliac arteries and common femoral bilaterally without flow-limiting stenosis. High-grade stenosis of the right SFA just past its origin) 5/597) likely secondary to circumferential plaque. The proximal segment of the profunda femoris appears patent. Additional scattered foci of predominantly calcified plaque seen in the right SFA. Probable focal high-grade stenosis in the right distal SFA (5/325). No high-grade stenoses in the right popliteal artery. 3 vessel tibial runoff is seen to the level of the right ankle. Multifocal calcified plaque seen in the left SFA. There is occlusion of the mid and distal segments of the left SFA with distal reconstitution from collaterals. The left popliteal is without flow-limiting stenosis. Three-vessel left tibial runoff seen to the level of the ankle. Abdomen: Emphysema is seen at the pulmonary bases. Basilar scarring also noted. Indeterminate 9 mm left base pulmonary nodule again noted (04/24). Ill-defined 1 cm hyperenhancing hepatic segment 8 lesion (5/49) is indeterminate, possibly a perfusional anomaly. No large liver masses. Unremarkable spleen, pancreas, and adrenals. No solid renal masses or hydronephrosis. Unremarkable bowel loops without evidence for inflammation or obstruction. No pathologic intra-abdominal lymphadenopathy. Pelvis: Unremarkable urinary bladder for degree of distention. Enlarged prostate is noted. No enlarged pelvic lymph nodes. No pelvic lymphadenopathy. Extremities: Degenerative changes in the spine. No focal suspicious osseous lesions. No acute fractures are seen. IMPRESSION: 1. Occlusion of the mid and distal segments of the left SFA, with distal collateral reconstitution. 2. Foci of high-grade stenoses in the proximal and distal right SFA as described above. 3. Probable flow-limiting stenosis of the right common iliac artery. 4. Three-vessel bilateral tibial runoffs. 5. Incidental well-defined 1 cm hyperenhancing hepatic segment 8 lesion, possibly a perfusional anomaly. Dedicated liver MRI could be obtained for further evaluation on a nonurgent basis. 6. Stable indeterminate subcentimeter left base pulmonary nodule.
== END 2019-10-06 08:13 | disposition home or self-care (01) ==
LOC: DI 08:12
PROVIDERS: ATTEND Radiology Diagnostic Radiology
DX: I70.203 Unspecified atherosclerosis of native arteries of extremities, bilateral legs (principal); I87.2 Venous insufficiency (chronic) (peripheral); I25.10 Atherosclerotic heart disease of native coronary artery without angina pectoris; Z79.899 Other long term (current) drug therapy; I77.811 Abdominal aortic ectasia; R91.1 Solitary pulmonary nodule
CPT/HCPCS: 36415; 75635; 80048; 85025; 85610; 93971; Q9967

== ENCOUNTER 2020-01-06 07:27 | Outpatient (CLI) | payer MEDICARE ==
[2020-01-06 08:24] LABS: ALBUMIN 4.2 g/dL (3.2-5.5); ALBUMIN/GLOBULIN RATIO 1.4 (1.0-2.2); ALKALINE PHOSPHATASE 58 IU/L (42-121); ALT ALANINE AMINOTRANSFERASE 24 IU/L (10-60); AST ASPARTATE AMINOTRANSFERASE 29 IU/L (10-42); BILIRUBIN,TOTAL 1.1 mg/dL (0.2-1.0); BUN - BLOOD UREA NITROGEN 13 mg/dL (6-20); CALCIUM 9.2 mg/dL (8.5-10.3); CARBON DIOXIDE - CO2 26 mmol/L (21-32); CHLORIDE 99 mmol/L (101-111); CHOL/HDL RATIO 2.3 (<5.0); CHOLESTEROL 198 mg/dL; CREATININE 0.8 mg/dL (0.6-1.2); GFR - MDRD 95 (>89); GLUCOSE 107 mg/dL (70-100); HDL CHOLESTEROL 87 mg/dL; LDL CHOLESTEROL,CALCULATED 96 mg/dL; LDL/HDL RATIO 1.1 (<3.6); SODIUM 135 mmol/L (135-145); TOTAL PROTEIN 7.3 g/dL (6.7-8.2); VLDL CHOLESTEROL 15 mg/dL
[2020-01-06 09:40] LABS: BASOPHILS # (AUTO) 0.1 10^3/uL (0.0-0.1); BASOPHILS % (AUTO) 1.4 %; EOSINOPHILS # (AUTO) 0.5 10^3/uL (0.0-0.7); EOSINOPHILS % (AUTO) 8.5 %; HGB - HEMOGLOBIN 14.4 g/dL (14.0-18.0); LYMPHOCYTES % (AUTO) 34.8 %; MEAN CORPUSCULAR HEMOGLOBIN 30.7 pg (27.0-31.0); MEAN CORPUSCULAR VOLUME 93.2 fL (80.0-94.0); MEAN PLATELET VOLUME 9.2 fL (7.4-11.4); MONOCYTES # (AUTO) 0.9 10^3/uL (0.0-1.0); MONOCYTES % (AUTO) 15.4 %; NEUTROPHILS # (AUTO) 2.3 10^3/uL (1.5-6.6); NEUTROPHILS % (AUTO) 39.6 %; PLT - PLATELET COUNT 229 10^3/uL (130-450); RED BLOOD COUNT 4.69 10^6/uL (4.70-6.10); RED CELL DISTRIBUTION WIDTH 13.8 % (12.0-15.0); WHITE BLOOD COUNT 5.9 x10^3/uL (4.8-10.8)
== END 2020-01-06 07:28 | disposition home or self-care (01) ==
LOC: LAB 07:27
PROVIDERS: ATTEND Nurse Practitioner
DX: I25.10 Atherosclerotic heart disease of native coronary artery without angina pectoris (principal); R35.0 Frequency of micturition; F32.9 Major depressive disorder, single episode, unspecified; Z79.899 Other long term (current) drug therapy
CPT/HCPCS: 36415; 80053; 80061; 83721; 84153; 84443; 85025

== ENCOUNTER 2020-01-07 08:00 | Outpatient (CLI) | payer MEDICARE | END 2020-01-07 23:59 | disposition home or self-care (01) | LOC: LAB.R 08:00 | PROVIDERS: ATTEND Nurse Practitioner | DX: Z12.11 Encounter for screening for malignant neoplasm of colon (principal) | CPT/HCPCS: 82274 ==

== ENCOUNTER 2020-01-12 13:04 | Outpatient (CLI) | payer MEDICARE ==
--- NOTE | 2020-01-13 14:46 | Ultrasound Report ---
Reason: LT CERVICAL LYMPHADENOPATHY Procedure Date: 01/12/2020 Accession Number: [id number] / [id number] Procedure: US - Head or Neck Soft Tissue CPT Code: Final Report FULL RESULT: EXAM: NECK ULTRASOUND. EXAM DATE: 01/12/2020 02:03 PM. CLINICAL HISTORY: Left cervical lymphadenopathy. COMPARISON: None. TECHNIQUE: Real time sonographic imaging of the thyroid was performed by the screwmaker automatic. Multiple u.s. representative static images were saved for review. FINDINGS: Patient's palpable area of concern in the left neck correlates to the left carotid bulb and adjacent 0.6 x 1.0 x 1.7 cm lymph node. Normal contour and ultrasound appearance of the lymph node. For comparison purposes, a lymph node in the right neck adjacent to the right carotid bulb is measured at 0.7 x 1.1 x 2.6 cm. IMPRESSION: Patient's area of concern correlates to a lymph node and adjacent carotid bulb.
== END 2020-01-12 13:05 | disposition home or self-care (01) ==
LOC: DI 13:04
PROVIDERS: ATTEND Nurse Practitioner
DX: R59.0 Localized enlarged lymph nodes (principal)
CPT/HCPCS: 76536

== ENCOUNTER 2020-01-27 11:06 | Outpatient (CLI) | payer MEDICARE ==
--- NOTE | 2020-01-27 18:53 | XRAY Report ---
Reason: WRIST JOINT HAND PAIN BILAT Procedure Date: 01/27/2020 Accession Number: [id number] / [id number] Procedure: XR - Wrist 3 View BILAT CPT Code: Final Report FULL RESULT: EXAM: BILATERAL WRIST RADIOGRAPHY EXAM DATE: 01/27/2020 11:36 AM. CLINICAL HISTORY: Bilateral wrist pain. COMPARISON: None. TECHNIQUE: 3 views. FINDINGS: Bones: No acute fracture is demonstrated. There is corticated osseous structure in the region of the left ulnar styloid, suggestive of previous fracture. Joints: There is severe joint space narrowing at the left radiocarpal joint with subchondral sclerosis an subchondral cyst formation. There is widening of the left scapholunate interval with proximal migration of the lunate and abnormal increased capitolunate angle and abnormal increased scapholunate angle, suggesting dorsiflexion instability (DISI). There is moderate joint space narrowing of the right radiocarpal joint with subchondral sclerosis. There is no joint space narrowing of the right first carpometacarpal joint. Soft Tissues: There is soft tissue swelling and deformity of the left wrist. IMPRESSION: 1. 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 2. 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 3. Moderate DJD of the right radiocarpal joint. 4. Mild DJD of the right first CMC joint. RADIA
--- NOTE | 2020-01-27 18:58 | XRAY Report ---
Reason: WRIST JOINT HAND PAIN BILAT Procedure Date: 01/27/2020 Accession Number: [id number] / [id number] Procedure: XR - Hand 3 View BILAT CPT Code: Final Report FULL RESULT: EXAMS: 1. Right Hand Radiography 2. Left Hand Radiography EXAM DATE: 01/27/2020 11:37 AM. CLINICAL HISTORY: Bilateral hand pain. COMPARISON: Bilateral wrist radiographs obtained concurrently, 01/27/2020. TECHNIQUE: 3 views each hand. FINDINGS: Right: Bones: There appears to be mild periosteal reaction/cortical thickening of the fifth metacarpal diaphysis, which may represent sequela of subacute-old fracture. No clear fracture line is demonstrated. No displacement demonstrated. No findings suspicious for acute fracture. Joints: No dislocation or subluxation. There is moderate joint space narrowing at the radiocarpal joint. There is also mild to moderate joint space narrowing at the first carpometacarpal joint. Soft Tissues: Unremarkable. Left: Bones: Old ulnar styloid fracture is demonstrated. No acute fracture is demonstrated. Joints: There is severe DJD of the radiocarpal joint. There is dorsal configuration of the lunate. Findings of carpal instability are better demonstrated on dedicated wrist radiographs. Soft Tissues: There is soft tissue swelling around the wrist. IMPRESSION: 1. No acute fracture demonstrated in either hand. 2. Possible subacute-old fracture of the right fifth metacarpal. No significant displacement demonstrated. 3. Findings of left carpal instability, better demonstrated on dedicated wrist radiographs. 4. DJD of bilateral radiocarpal joints, severe on the left and moderate on the right. RADIA
== END 2020-01-27 11:07 | disposition home or self-care (01) ==
LOC: DI 11:06
PROVIDERS: ATTEND Nurse Practitioner
DX: M19.032 Primary osteoarthritis, left wrist (principal); M19.031 Primary osteoarthritis, right wrist; M19.042 Primary osteoarthritis, left hand; M19.041 Primary osteoarthritis, right hand

== ENCOUNTER 2020-05-20 10:16 | Outpatient (CLI) | payer MEDICARE ==
[2020-05-20 10:39] LABS: ALBUMIN 4.3 g/dL (3.2-5.5); ALBUMIN/GLOBULIN RATIO 1.6 (1.0-2.2); CALCIUM 8.9 mg/dL (8.5-10.3); CREATININE 0.7 mg/dL (0.6-1.2)
== END 2020-05-20 10:17 | disposition home or self-care (01) ==
LOC: LAB 10:16
PROVIDERS: ATTEND Nurse Practitioner
DX: Z79.899 Other long term (current) drug therapy (principal)
CPT/HCPCS: 36415; 80053

== ENCOUNTER 2020-05-25 08:12 | Outpatient (CLI) | payer MEDICARE ==
[2020-05-25] MEDS ORDERED: GADOBUTROL 7.5 MMOL/7.5 ML VIAL IVP ONE ×2 (08:13→10:01)
[2020-05-25] MEDS ORDERED: GADOBUTROL 7.5 MMOL/7.5 ML VIAL ONE (09:31)
--- NOTE | 2020-05-25 10:16 | MRI Report ---
Reason: POOR SHORT TERM MEMORY, MOOD DISORDER Procedure Date: 05/25/2020 Accession Number: [id number] / [id number] Procedure: MRI - Brain W/WO CPT Code: Final Report FULL RESULT: PROCEDURE: Brain W/WO INDICATIONS: POOR SHORT TERM MEMORY, MOOD DISORDER CONTRAST: IV CONTRAST: Gadavist ml: 5 TECHNIQUE: Noncontrast axial T1 spin echo, axial T2 fast spin echo, sagittal and axial FLAIR, coronal T2 fast spin echo, axial gradient echo, axial diffusion and ADC through the brain. After the administration of contrast, axial and coronal T1 spin echo with fat saturation through the brain. COMPARISON: None. FINDINGS: Image quality: Excellent. CSF spaces: Basal cisterns are patent. No extra-axial fluid collections. Ventricles are normal in size and shape. Brain: No midline shift. No intracranial bleeds or masses. No abnormal intracranial enhancement. There is mild cerebral volume loss for age. There is minimal periventricular white matter chronic small vessel ischemic change. The brainstem appears normal. Diffusion-weighted images demonstrate no acute ischemic insults. No chronic ischemic insults. Normal intravascular flow voids are present. Skull and face: Calvarial marrow is normal in signal. Orbits appear normal. Sinuses: There is moderate mucosal thickening in the bilateral ethmoid air cells. Mild mucosal thickening in the bilateral frontal, maxillary, and sphenoid sinuses. Mastoids are clear. IMPRESSION: 1. Mild volume loss. Minimal small vessel ischemic disease. 2. No acute process. No recent infarct. 3. Sinus disease. Reviewed by: Leela Chu MD on 05/25/2020 10:14 AM PDT Approved by: Leela Chu MD on 05/25/2020 10:14 AM PDT Station ID: [id number]
== END 2020-05-25 08:13 | disposition home or self-care (01) ==
LOC: DI 08:12
PROVIDERS: ATTEND Nurse Practitioner
DX: I67.89 Other cerebrovascular disease (principal); J32.8 Other chronic sinusitis; R91.1 Solitary pulmonary nodule; J43.2 Centrilobular emphysema; Z79.899 Other long term (current) drug therapy
CPT/HCPCS: 70553; A9585; 71260

== ENCOUNTER 2020-05-25 08:14 | Outpatient (CLI) | payer MEDICARE ==
[2020-05-25] MEDS ORDERED: IOVERSOL 320 100 ML VIAL IVP ONE ×2 (09:18→13:36)
--- NOTE | 2020-05-25 12:00 | CT Report ---
PROCEDURE: CHEST W INDICATIONS: Squamous cell carcinoma, prior CT reports malignant neoplasm of the lower left lung. CONTRAST: IV CONTRAST: Optiray 320 ml: 100 PO CONTRAST: *NO PO CONTRAST TECHNIQUE: After the administration of intravenous contrast, 5 mm thick sections acquired from the pulmonary api evelin to the posterior costophrenic angles. 7 mm thick coronal MIP reformats were acquired. For radia tion dose reduction, the following was used: automated exposure control, adjustment of mA and/or kV according to patient size. COMPARISON: Prior chest CT 07/21/2019. FINDINGS: Image quality: Excellent. Lungs and pleura: No acute air space opacities. Note is made of mild presumed posttreatment distort ion at the posterolateral left lower lobe, near an area of a 8 mm nodule at the posterior costophreni c sulcus on the left, present previously without enlargement over time. Lung parenchyma and pleural s carring is present over each upper lobe, stable, in addition to prominent centrilobular emphysema and COPD. No pleural effusions or pneumothorax. Central and peripheral airways are patent and normal in caliber. Mediastinum: Heart size is normal. No pericardial effusion. No mediastinal or hilar adenopathy by size criteria. Thoracic aorta and central pulmonary arteries are normal in size. Esophagus is lilian l in caliber. No hiatal hernia. Bones and chest wall: No suspicious bony lesions. No vertebral body compression fractures. No axil yasmeen or supraclavicular adenopathy by size criteria. Thyroid gland appears normal where well seen.. Abdomen: Visualized upper abdominal solid organs appear normal. Upper abdominal bowel loops are nor mal in caliber. IMPRESSION: No adenopathy or growing mass lesion is found. Severe COPD and centrilobular emphysema. Small 8 mm no dule left posterior costophrenic sulcus stable over time. Presumed posttreatment mild distortion of t he left lower lobe lung parenchyma also appears stable over time. Reviewed by: Jr Benitez MD on 05/25/2020 11:59 AM PDT Approved by: Jr Benitez MD on 05/25/2020 11:59 AM PDT Station ID: [id number]
== END 2020-05-25 08:15 | disposition home or self-care (01) ==
LOC: DI 08:14
PROVIDERS: ATTEND Nurse Practitioner
DX: R91.1 Solitary pulmonary nodule (principal); J43.2 Centrilobular emphysema; Z79.899 Other long term (current) drug therapy
CPT/HCPCS: 71260; Q9967

== ENCOUNTER 2020-08-25 07:21 | Emergency (ER) | payer MEDICARE ==
--- NOTE | 2020-08-25 08:08 | ED Physician Documentation ---
History of Present Illness - Stated complaint Stated Complaint: NOSE BLEED - Chief complaint Chief Complaint: Heent - History obtained from History obtained from: Patient, Family - History of Present Illness Timing: Today Pain level max: 0 Pain level now: 0 - Additonal information Additional information: 75-year-old male on Plavix presents to the emergency department complaining of a nosebleed that started approximately 3 hours ago. Nothing makes it better or worse. No trauma. No fevers. No lightheadedness. No chest pain. No shortness of breath. Review of Systems Constitutional: denies: Fever, Chills Cardiac: denies: Chest pain / pressure Respiratory: denies: Cough GI: denies: Nausea, Vomiting, Diarrhea Skin: denies: Rash Musculoskeletal: denies: Neck pain, Back pain Neurologic: denies: Headache PD PAST MEDICAL HISTORY - Past Medical History Cardiovascular: Hypertension Respiratory: COPD, Other Neuro: None Endocrine/Autoimmune: None GI: GERD, Ulcers : None HEENT: None Psych: Depression Musculoskeletal: Osteoarthritis, Scoliosis, Chronic back pain Derm: None - Past Surgical History Past Surgical History: Yes General: Colonoscopy Ortho: Rotator cuff repair, Spine surgery - Present Medications Home Medications: Ambulatory Orders Medication Instructions Recorded Confirmed Acetaminophen [Tylenol Extra 500 mg PO TID 08/12/14 12/10/18 Strength] Ginseng [Panax Ginseng] 100 mg PO DAILY 08/12/14 12/10/18 Multivit-Min/FA/Lycopene/Lut 1 cap PO DAILY 08/12/14 12/10/18 [Centrum Silver Tablet] Omeprazole 40 mg PO BID 08/12/14 12/10/18 Saw [place] 80 mg PO DAILY 08/12/14 12/10/18 buPROPion [Wellbutrin Sr] 100 mg PO BID 08/12/14 12/10/18 diphenhydrAMINE [Benadryl] 25 mg PO Q4-6H 08/12/14 12/10/18 lisinopriL [Lisinopril] 5 mg PO DAILY 08/12/14 12/10/18 raNITIdine [Zantac] 150 mg PO DAILY 08/12/14 12/10/18 traZODone [Desyrel] 50 mg PO ONCE 08/12/14 12/10/18 Levofloxacin [Levaquin] 750 mg PO DAILY #7 tablet 10/28/18 12/10/18 Cephalexin [Keflex] 500 mg PO Q6H #12 capsule 08/25/20 - Allergies Allergies/Adverse Reactions: Allergies Allergy/AdvReac Type Severity Reaction Status Date / Time NSAIDS (Non-Steroidal AdvReac Mild Nausea Verified 08/25/20 07:31 Anti-Inflamma - Social History Does the pt smoke?: No Smoking Status: Former smoker Does the pt drink ETOH?: No Does the pt have substance abuse?: No - Immunizations Immunizations are current?: Yes - POLST Patient has POLST: No PD ED PE NORMAL - Vitals Vital signs reviewed: Yes - General General: Alert and oriented X 3, No acute distress - HEENT HEENT: Moist mucous membranes, Other (Bleeding from the right nare. Unable to visualize source) - Neck Neck: Supple, no meningeal sign - Cardiac Cardiac: RRR - Respiratory Respiratory: No respiratory distress, Clear bilaterally - Derm Derm: Warm and dry - Neuro Neuro: Alert and oriented X 3 Results - Vitals Vitals: Vital Signs - 24 hr 08/25/20 08/25/20 07:23 07:31 Temperature 36.3 C L Heart Rate 85 82 Respiratory 18 16 Rate Blood Pressure 144/89 H 138/65 H O2 Saturation 97 98 Oxygen O2 Source Room air Departure - Departure Disposition: 01 Home, Self Care Clinical Impression: Epistaxis Condition: Good Instructions: ED Nosebleed Follow-Up: Aracely Baker ARNP, [employer] [Primary Care Provider] - Prescriptions: Cephalexin [Keflex] 500 mg PO Q6H #12 capsule Comments: Return to the emergency department in 2 to 3 days for packing removal. Return sooner if you worsen.
[2020-08-25] MEDS ORDERED: HYDROcod/ACETAM 5/325 MG TABLET PO STA (10:16)
[2020-08-25] MEDS ORDERED: TRANEXAMIC ACID 1,000 MG/10 ML VIAL NAS STA (11:34)
[2020-08-25 12:35] VITALS: BP 141/94
== END 2020-08-25 12:46 | disposition home or self-care (01) ==
LOC: ED 07:21
DX: R04.0 Epistaxis (principal); Z79.02 Long term (current) use of antithrombotics/antiplatelets; I10 Essential (primary) hypertension; Z87.891 Personal history of nicotine dependence
CPT/HCPCS: 30901; 99282; 99284; A9270

== ENCOUNTER 2020-08-27 11:03 | Emergency (ER) | payer MEDICARE ==
[2020-08-27 11:09] VITALS: BP 135/72
--- NOTE | 2020-08-27 11:43 | ED Physician Documentation ---
PD HPI HEENT - Stated complaint Stated Complaint: NASAL PLUG REMOVAL - Chief complaint Chief Complaint: Heent - History obtained from History obtained from: Patient, Family - History of Present Illness Timing - onset: How many days ago (2) Timing - duration: Days (2) Timing - details: Abrupt onset, Now resolved Location: Nose Improves: Other (nasal tampon) Worsens: [place] Associated symptoms: Rhinorrhea. No: Fever, Congestion, Headache, Cough Similar symptoms before: Has not had sx before Recently seen: Emergency Dept - Additional information Additional information: 75-year-old male seen in the emergency department 2 days ago for a nosebleed and has some difficult time controlling the nosebleeding. He had several nasal plugs tried and eventually bleeding was controlled. He is coming in now for recheck for removal of the nasal tampon. Review of Systems Constitutional: denies: Fever Eyes: denies: Decreased vision Ears: denies: Ear pain Nose: reports: Epistaxis Throat: denies: Sore throat Respiratory: denies: Cough GI: denies: Vomiting PD PAST MEDICAL HISTORY - Past Medical History Cardiovascular: Hypertension Respiratory: COPD, Other Neuro: None Endocrine/Autoimmune: None GI: GERD, Ulcers : None HEENT: None Psych: Depression Musculoskeletal: Osteoarthritis, Scoliosis, Chronic back pain Derm: None - Past Surgical History Past Surgical History: Yes General: Colonoscopy Ortho: Rotator cuff repair, Spine surgery - Present Medications Home Medications: Ambulatory Orders Medication Instructions Recorded Confirmed Acetaminophen [Tylenol Extra 500 mg PO TID 08/12/14 12/10/18 Strength] Ginseng [Panax Ginseng] 100 mg PO DAILY 08/12/14 12/10/18 Multivit-Min/FA/Lycopene/Lut 1 cap PO DAILY 08/12/14 12/10/18 [Centrum Silver Tablet] Omeprazole 40 mg PO BID 08/12/14 12/10/18 Saw [place] 80 mg PO DAILY 08/12/14 12/10/18 buPROPion [Wellbutrin Sr] 100 mg PO BID 08/12/14 12/10/18 diphenhydrAMINE [Benadryl] 25 mg PO Q4-6H 08/12/14 12/10/18 lisinopriL [Lisinopril] 5 mg PO DAILY 08/12/14 12/10/18 raNITIdine [Zantac] 150 mg PO DAILY 08/12/14 12/10/18 traZODone [Desyrel] 50 mg PO ONCE 08/12/14 12/10/18 Levofloxacin [Levaquin] 750 mg PO DAILY #7 tablet 10/28/18 12/10/18 Cephalexin [Keflex] 500 mg PO Q6H #12 capsule 08/25/20 - Allergies Allergies/Adverse Reactions: Allergies Allergy/AdvReac Type Severity Reaction Status Date / Time NSAIDS (Non-Steroidal AdvReac Mild Nausea Verified 08/27/20 11:09 Anti-Inflamma - Social History Does the pt smoke?: No Smoking Status: Former smoker Does the pt drink ETOH?: No Does the pt have substance abuse?: No - Immunizations Immunizations are current?: Yes - POLST Patient has POLST: No PD ED PE NORMAL - Vitals Vital signs reviewed: Yes (hypertensive mild ) - General General: Alert and oriented X 3, No acute distress, Well developed/nourished - HEENT HEENT: Atraumatic, PERRL, EOMI, Other (There is a nasal tampon on the right night nares and there is no evidence of bleeding anteriorly. This nasal tampon is removed intact with blood clots to the posterior aspect of the tampon.) - Neck Neck: Supple, no meningeal sign - Respiratory Respiratory: No respiratory distress - Neuro Neuro: Alert and oriented X 3, seo team lead 2-12 intact, No motor deficit, No sensory deficit, Normal speech Eye Opening: Spontaneous Motor: Obeys Commands Verbal: Oriented GCS Score: 15 - Psych Psych: Normal mood, Normal affect Results - Vitals Vitals: Vital Signs - 24 hr 08/27/20 11:06 Temperature 37.1 C Heart Rate 87 Respiratory 16 Rate Blood Pressure 135/72 H O2 Saturation 95 Oxygen O2 Source Room air PD MEDICAL DECISION MAKING - ED course Complexity details: considered differential, d/w patient, d/w family ED course: 75-year-old male with a nosebleed that had some difficulty getting control has had no further symptoms other than difficulty with swallowing associated with the placement of the nasal tampon. The nasal tampon is removed with blood at the end of the tampon and this was a long tampon. There is not further bleeding and no bleeding in the oropharynx. Departure - Departure Disposition: 01 Home, Self Care Clinical Impression: Epistaxis Condition: Stable Instructions: ED Nosebleed Follow-Up: Aracely Baker ARNP, [employer]PER-C [Primary Care Provider] -
== END 2020-08-27 11:56 | disposition home or self-care (01) ==
LOC: ED 11:03
DX: R04.0 Epistaxis (principal); I10 Essential (primary) hypertension; Z87.891 Personal history of nicotine dependence
CPT/HCPCS: 99281; 99282

== ENCOUNTER 2020-09-01 17:14 | Emergency (ER) | payer MEDICARE ==
[2020-09-01] MEDS ORDERED: OXYMETAZOLINE HCL 100 SPRAYS BOTTLE NAS STA (17:34)
[2020-09-01] MEDS ORDERED: TRANEXAMIC ACID 1,000 MG/10 ML VIAL NAS STA (18:08)
--- NOTE | 2020-09-01 18:47 | ED Physician Documentation ---
History of Present Illness - Stated complaint Stated Complaint: NOSE BLEED - Chief complaint Chief Complaint: Heent - History obtained from History obtained from: Patient - Additonal information Additional information: 75-year-old male returns to the emergency department for evaluation of right- sided epistaxis. He was seen here for similar on 25 August and ultimately required a Rhino Rocket in order to control the bleed. He returned on the and the packing was removed. He had been doing well until this evening when the bleeding returned. He denies any recent falls or trauma. He is not taking anticoagulation. Review of Systems Constitutional: reports: Reviewed and negative Eyes: reports: Reviewed and negative Ears: reports: Reviewed and negative Nose: reports: Epistaxis Throat: reports: Reviewed and negative Cardiac: reports: Reviewed and negative Respiratory: reports: Reviewed and negative GI: reports: Reviewed and negative : reports: Reviewed and negative Skin: reports: Reviewed and negative Musculoskeletal: reports: Reviewed and negative PD PAST MEDICAL HISTORY - Past Medical History Past Medical History: Yes Cardiovascular: Hypertension Respiratory: COPD, Other Neuro: None Endocrine/Autoimmune: None GI: GERD, Ulcers : None HEENT: None Psych: Depression Musculoskeletal: Osteoarthritis, Scoliosis, Chronic back pain Derm: None - Past Surgical History Past Surgical History: Yes General: Colonoscopy Ortho: Rotator cuff repair, Spine surgery - Present Medications Home Medications: Ambulatory Orders Medication Instructions Recorded Confirmed Acetaminophen [Tylenol Extra 500 mg PO TID 08/12/14 12/10/18 Strength] Ginseng [Panax Ginseng] 100 mg PO DAILY 08/12/14 12/10/18 Multivit-Min/FA/Lycopene/Lut 1 cap PO DAILY 08/12/14 12/10/18 [Centrum Silver Tablet] Omeprazole 40 mg PO BID 08/12/14 12/10/18 Saw [place] 80 mg PO DAILY 08/12/14 12/10/18 buPROPion [Wellbutrin Sr] 100 mg PO BID 08/12/14 12/10/18 diphenhydrAMINE [Benadryl] 25 mg PO Q4-6H 08/12/14 12/10/18 lisinopriL [Lisinopril] 5 mg PO DAILY 08/12/14 12/10/18 raNITIdine [Zantac] 150 mg PO DAILY 08/12/14 12/10/18 traZODone [Desyrel] 50 mg PO ONCE 08/12/14 12/10/18 levoFLOXacin [Levaquin] 750 mg PO DAILY #7 tablet 10/28/18 12/10/18 Cephalexin [Keflex] 500 mg PO Q6H #12 capsule 08/25/20 Cephalexin [Keflex] 500 mg PO Q6H #28 capsule 09/01/20 - Allergies Allergies/Adverse Reactions: Allergies Allergy/AdvReac Type Severity Reaction Status Date / Time NSAIDS (Non-Steroidal AdvReac Mild Nausea Verified 09/01/20 17:23 Anti-Inflamma - Social History Does the pt smoke?: No Smoking Status: Never smoker Does the pt drink ETOH?: No Does the pt have substance abuse?: No - Immunizations Immunizations are current?: Yes - POLST Patient has POLST: No PD ED PE EXPANDED - General General: Alert, In distress - HEENT HEENT: Right nares epsitaxis - Neck Neck: Supple w/out meningeal sx, No tenderness. No: Adenopathy - Cardiac Cardiac: Regular Rate, Radial strong equal - Respiratory Respiratory: Clear to ausultation gricelda. No: Distress, Labored - Abdomen Abdomen: Normal Bowel sounds - Neuro Neuro: Alert and Oriented X 3, CNII-XII intact - GCS Eye Opening: Spontaneous Motor: Obeys Commands Verbal: Oriented Total: 15 Results - Vitals Vitals: Vital Signs - 24 hr 09/01/20 17:18 Temperature 37 C Heart Rate 91 Respiratory 20 Rate Blood Pressure 138/81 H O2 Saturation 96 Oxygen O2 Source Room air Procedures - Epistaxis Site: Right Preparation: Clots removed, Afrin, Other (500 mg tranxemic acid intranasally) Treatment: Ant post rhinorocket Other: Observed - no bleeding, Pt tolerated well, Antibiotics prescribed, Referred to ENT PD MEDICAL DECISION MAKING - ED course Complexity details: reviewed results, considered differential, d/w patient ED course: 75-year-old male returns to the emergency department with right-sided epistaxis. Seen 1 week ago for similar and required Rhino Rocket. Unfortunately he required the same treatment again today. A 7.5 cm anterior posterior Rhino Rocket was placed with successful cessation of the nosebleed. Patient was given Keflex here in the emergency department and will be prescribed Keflex on disc harge. He was advised to return here in 48 hours for packing removal. Given second recurrence of epistaxis I will make a referral for this gentleman to ear nose throat. Departure - Departure Disposition: 01 Home, Self Care Clinical Impression: Epistaxis, recurrent Condition: Stable Record reviewed to determine appropriate education?: Yes Instructions: ED Nasal Packing Anterior Removable, ED Epistaxis Ch Follow-Up: [facility] [Provider Group] Prescriptions: Cephalexin [Keflex] 500 mg PO Q6H #28 capsule Comments: Ion the packing placed in your nose should be removed in about 48 hours. Please return here to the emergency department to have that done. As we discussed because this is your second episode of nosebleed at this point it is appropriate for you to be seen by an ear nose throat doctor. Please call [facility] tomorrow to schedule follow-up. Or you may ask your primary care doctor to arrange for follow-up. Return to the emergency department if you develop fevers, suddenly severe headache, or if the bleeding persists despite the nasal packing.
[2020-09-01] MEDS ORDERED: HYDROmorphone 1 MG/ML CARPUJECT IVP STA (19:01)
[2020-09-01] MEDS ORDERED: HYDROmorphone 1 MG/ML CARPUJECT IM STA (19:03)
[2020-09-01] MEDS ORDERED: cephALEXin 250 MG CAPSULE PO STA (19:26)
[2020-09-01 19:45] VITALS: BP 132/81
== END 2020-09-01 19:44 | disposition home or self-care (01) ==
LOC: ED 17:14
DX: R04.0 Epistaxis (principal); I10 Essential (primary) hypertension
CPT/HCPCS: 30905; 96372; 99282; 99283; A9270; J1170

== ENCOUNTER 2020-09-04 06:58 | Emergency (ER) | payer MEDICARE ==
[2020-09-04] MEDS ORDERED: OXYMETAZOLINE HCL 100 SPRAYS BOTTLE NAS STA (08:19)
--- NOTE | 2020-09-04 08:33 | ED Physician Documentation ---
History of Present Illness - Stated complaint Stated Complaint: NOSE BLEED FOLLOW UP - Chief complaint Chief Complaint: Heent - History obtained from History obtained from: Patient - Additonal information Additional information: For packing removal after having packing placed on September 01 for right-sided epistaxis. Patient states that approximately 2 weeks before that, he had had to have the same thing done for bleeding on the same side. He states he is not been able to follow-up with ENT yet, but has an appointment with his primary doctor tomorrow regarding this and some other things. The patient states that he was fine after packing removal until he sneezed and noticed recurrence of bleeding. He was seen on September 01 for this in our emergency department and packing was placed. The patient was instructed to follow-up in 48 hours to have packing removed. Patient denies any bleeding around the packing. According to ED records, hemostasis was unsuccessful with shorter packing materials and so a 7.5 cm Rhino Rocket had to be placed. The patient states he used to be on clopidogrel, but is not currently on any anticoagulation. He denies any recent trauma to his nose. No other complaints at this time. Review of Systems Ten Systems: 10 systems reviewed and negative Constitutional: reports: Reviewed and negative Eyes: reports: Reviewed and negative Ears: reports: Reviewed and negative Nose: reports: Reviewed and negative Throat: reports: Reviewed and negative Cardiac: reports: Reviewed and negative Respiratory: reports: Reviewed and negative GI: reports: Reviewed and negative : reports: Reviewed and negative Skin: reports: Reviewed and negative Musculoskeletal: reports: Reviewed and negative Neurologic: reports: Reviewed and negative Psychiatric: reports: Reviewed and negative Endocrine: reports: Reviewed and negative Immunocompromised: reports: Reviewed and negative PD PAST MEDICAL HISTORY - Past Medical History Past Medical History: Yes Cardiovascular: Hypertension Respiratory: COPD, Other Neuro: None Endocrine/Autoimmune: None GI: GERD, Ulcers : None HEENT: None Psych: Depression Musculoskeletal: Osteoarthritis, Scoliosis, Chronic back pain Derm: None - Past Surgical History Past Surgical History: Yes General: Colonoscopy Ortho: Rotator cuff repair, Spine surgery - Present Medications Home Medications: Ambulatory Orders Medication Instructions Recorded Confirmed Acetaminophen [Tylenol Extra 500 mg PO TID 08/12/14 12/10/18 Strength] Ginseng [Panax Ginseng] 100 mg PO DAILY 08/12/14 12/10/18 Multivit-Min/FA/Lycopene/Lut 1 cap PO DAILY 08/12/14 12/10/18 [Centrum Silver Tablet] Omeprazole 40 mg PO BID 08/12/14 12/10/18 Saw [place] 80 mg PO DAILY 08/12/14 12/10/18 buPROPion [Wellbutrin Sr] 100 mg PO BID 08/12/14 12/10/18 diphenhydrAMINE [Benadryl] 25 mg PO Q4-6H 08/12/14 12/10/18 lisinopriL [Lisinopril] 5 mg PO DAILY 08/12/14 12/10/18 raNITIdine [Zantac] 150 mg PO DAILY 08/12/14 12/10/18 traZODone [Desyrel] 50 mg PO ONCE 08/12/14 12/10/18 levoFLOXacin [Levaquin] 750 mg PO DAILY #7 tablet 10/28/18 12/10/18 Cephalexin [Keflex] 500 mg PO Q6H #12 capsule 08/25/20 Cephalexin [Keflex] 500 mg PO Q6H #28 capsule 09/01/20 - Allergies Allergies/Adverse Reactions: Allergies Allergy/AdvReac Type Severity Reaction Status Date / Time NSAIDS (Non-Steroidal AdvReac Mild Nausea Verified 09/01/20 17:23 Anti-Inflamma - Social History Does the pt smoke?: No Smoking Status: Never smoker Does the pt drink ETOH?: No Does the pt have substance abuse?: No - Immunizations Immunizations are current?: Yes - POLST Patient has POLST: No PD ED PE NORMAL - Vitals Vital signs reviewed: Yes - General General: Alert and oriented X 3, No acute distress - HEENT HEENT: Atraumatic, PERRL, EOMI, Moist mucous membranes, Other (Dry packing noted to be protruding from the patient's right naris. No fresh blood. No other drainage.) - Neck Neck: Supple, no meningeal sign - Respiratory Respiratory: No respiratory distress - Derm Derm: Normal color, Warm and dry, No rash - Extremities Extremities: No deformity - Neuro Neuro: Alert and oriented X 3 - Psych Psych: Normal mood, Normal affect Results - Vitals Vitals: Vital Signs - 24 hr 09/04/20 09/04/20 09:32 10:36 Heart Rate 88 87 Respiratory 16 18 Rate Blood Pressure 126/82 H 145/94 H O2 Saturation 96 93 Oxygen O2 Source Room air PD MEDICAL DECISION MAKING - ED course Complexity details: considered differential, d/w patient ED course: I discussed with the patient that we can remove the packing today though ideally, he would be seeing ENT and close follow-up, as he has had recurrence of bleeding in close succession once already after packing. We also discussed that removal of the packing may trigger some bleeding from the site again. The packing was removed and a slight ooze of blood was noted on the patient's superior nasal septum. Patient was given 3 sprays of oxymetazoline in his right naris and nose clamps were placed for approximately 15 minutes. After this, the clamps were removed and patient was found to have a very slow leak of serosanguineous fluid. I did look inside his nose again and saw that he had some small clot material in the recesses of his nasal passage. No active source of bleeding was noted, but an ooze of bright red blood was noted to be slowly making its way down. At this point, I spoke with Dr. Owens of ENT, as the patient, I felt, needed closer ENT follow-up, as repeated packing has not managed to control his symptoms entirely. Dr. Owens stated that the patient should be packed again, but this time, it should be left in for at least 5 days and that it should not be taken out until the patient seen in ENT clinic. He stated that the patient should call the ENT clinic first thing tomorrow, which is Saturday, and make an appointment. He stated they would like to see the patient within the week. I have relayed all of this to the patient, who is not very happy about having to have the packing replaced, but expresses understanding. A 7.5cm Rhino Rocket was prepped with sterile water and inserted into the patient's nose again. The passage was fairly smooth, though the patient had a bit of discomfort, not surprisingly given the 2 rounds recently of packing placement and removal. A small amount of bloody residue was expelled by the patient from his mouth, but otherwise, no further bleeding was noted. Approximately 2 cc of air was placed in the Rhino Rocket balloon. We have discussed management of the symptoms at home. The patient is already on Keflex and should continue this throughout the duration of his packing. We have dis cussed to the usual indications for return Departure - Departure Disposition: 01 Home, Self Care Clinical Impression: Encounter for removal of nasal packing Condition: Stable Instructions: ED Nosebleed Follow-Up: WOODY OWENS MD [Physician No Access] - Comments: Your packing has been replaced, due to your risk of rebleeding. Dr. Owens, the on-call ENT specialist at [facility], has reviewed your case and recommends 5 more days of packing. He would like you to call the office first thing tomorrow to set up an appointment to be seen this week. In the meantime, please continue the antibiotics you were placed on Saturday. Please also keep your appointment with your primary care physician tomorrow, as planned. Discharge Date/Time: 09/04/20 10:45
[2020-09-04 10:38] VITALS: BP 145/94
== END 2020-09-04 10:45 | disposition home or self-care (01) ==
LOC: ED 06:58
DX: R04.0 Epistaxis (principal)
CPT/HCPCS: 30901; 99282; A9270

== ENCOUNTER 2020-09-06 08:00 | Outpatient (CLI) | payer MEDICARE ==
[2020-09-06 18:10] LABS: BASOPHILS # (AUTO) 0.1 10^3/uL (0.0-0.1); BASOPHILS % (AUTO) 0.7 %; EOSINOPHILS # (AUTO) 0.3 10^3/uL (0.0-0.7); EOSINOPHILS % (AUTO) 3.8 %; HGB - HEMOGLOBIN 11.5 g/dL (14.0-18.0); LYMPHOCYTES # (AUTO) 1.9 10^3/uL (1.5-3.5); LYMPHOCYTES % (AUTO) 21.7 %; MEAN CORPUSCULAR HEMOGLOBIN 31.3 pg (27.0-31.0); MEAN CORPUSCULAR HGB CONC 33.2 g/dL (32.0-36.0); MONOCYTES # (AUTO) 0.7 10^3/uL (0.0-1.0); MONOCYTES % (AUTO) 7.8 %; NEUTROPHILS # (AUTO) 5.7 10^3/uL (1.5-6.6); NEUTROPHILS % (AUTO) 65.8 %; PLT - PLATELET COUNT 235 10^3/uL (130-450); RED BLOOD COUNT 3.68 10^6/uL (4.70-6.10); RED CELL DISTRIBUTION WIDTH 14.5 % (12.0-15.0); WHITE BLOOD COUNT 8.6 x10^3/uL (4.8-10.8)
== END 2020-09-06 23:59 | disposition home or self-care (01) ==
LOC: LAB.WCP 08:00
PROVIDERS: ATTEND Nurse Practitioner Family
DX: R04.0 Epistaxis (principal)
CPT/HCPCS: 36415; 85025

== ENCOUNTER 2020-10-07 14:55 | Outpatient (CLI) | payer MEDICARE ==
[2020-10-07 15:37] LABS: BASOPHILS # (AUTO) 0.1 10^3/uL (0.0-0.1); BASOPHILS % (AUTO) 1.3 %; EOSINOPHILS # (AUTO) 0.3 10^3/uL (0.0-0.7); EOSINOPHILS % (AUTO) 4.7 %; LYMPHOCYTES % (AUTO) 31.2 %; MEAN CORPUSCULAR HEMOGLOBIN 29.8 pg (27.0-31.0); MEAN CORPUSCULAR HGB CONC 32.8 g/dL (32.0-36.0); MEAN CORPUSCULAR VOLUME 90.8 fL (80.0-94.0); MEAN PLATELET VOLUME 8.5 fL (7.4-11.4); MONOCYTES # (AUTO) 0.6 10^3/uL (0.0-1.0); MONOCYTES % (AUTO) 9.1 %; NEUTROPHILS # (AUTO) 3.4 10^3/uL (1.5-6.6); NEUTROPHILS % (AUTO) 53.4 %; PLT - PLATELET COUNT 240 10^3/uL (130-450); RED BLOOD COUNT 4.03 10^6/uL (4.70-6.10); WHITE BLOOD COUNT 6.4 x10^3/uL (4.8-10.8)
[2020-10-07 15:56] LABS: PT - PROTHROMBIN TIME 11.2 secs (9.9-12.6)
== END 2020-10-07 14:56 | disposition home or self-care (01) ==
LOC: LAB 14:55
PROVIDERS: ATTEND Family Medicine
DX: R45.1 Restlessness and agitation (principal); R41.3 Other amnesia; F39 Unspecified mood [affective] disorder; R04.0 Epistaxis
CPT/HCPCS: 36415; 81599; 82607; 83921; 85025; 85610; 86780

== ENCOUNTER 2021-01-16 09:31 | Outpatient (CLI) | payer MEDICARE ==
[2021-01-16 09:50] LABS: BASOPHILS # (AUTO) 0.1 10^3/uL (0.0-0.1); BASOPHILS % (AUTO) 1.2 %; EOSINOPHILS # (AUTO) 0.7 10^3/uL (0.0-0.7); EOSINOPHILS % (AUTO) 10.6 %; HGB - HEMOGLOBIN 13.5 g/dL (14.0-18.0); LYMPHOCYTES # (AUTO) 2.1 10^3/uL (1.5-3.5); LYMPHOCYTES % (AUTO) 32.7 %; MEAN CORPUSCULAR HEMOGLOBIN 28.1 pg (27.0-31.0); MEAN CORPUSCULAR HGB CONC 31.9 g/dL (32.0-36.0); MEAN CORPUSCULAR VOLUME 88.1 fL (80.0-94.0); MEAN PLATELET VOLUME 8.7 fL (7.4-11.4); MONOCYTES # (AUTO) 0.9 10^3/uL (0.0-1.0); MONOCYTES % (AUTO) 13.2 %; NEUTROPHILS # (AUTO) 2.7 10^3/uL (1.5-6.6); PLT - PLATELET COUNT 265 10^3/uL (130-450); RED CELL DISTRIBUTION WIDTH 17.1 % (12.0-15.0); WHITE BLOOD COUNT 6.4 x10^3/uL (4.8-10.8)
[2021-01-16 10:03] LABS: ALBUMIN 4.1 g/dL (3.2-5.5); ALBUMIN/GLOBULIN RATIO 1.3 (1.0-2.2); ALKALINE PHOSPHATASE 59 IU/L (42-121); ALT ALANINE AMINOTRANSFERASE 19 IU/L (10-60); AST ASPARTATE AMINOTRANSFERASE 22 IU/L (10-42); BILIRUBIN,TOTAL 0.7 mg/dL (0.2-1.0); BUN - BLOOD UREA NITROGEN 13 mg/dL (6-20); CALCIUM 9.5 mg/dL (8.5-10.3); CARBON DIOXIDE - CO2 25 mmol/L (21-32); CHLORIDE 101 mmol/L (101-111); CHOL/HDL RATIO 2.6 (<5.0); CHOLESTEROL 221 mg/dL; CREATININE 0.8 mg/dL (0.6-1.2); GLUCOSE 101 mg/dL (70-100); HDL CHOLESTEROL 86 mg/dL; LDL CHOLESTEROL,CALCULATED 108 mg/dL; LDL/HDL RATIO 1.3 (<3.6); TOTAL PROTEIN 7.2 g/dL (6.7-8.2); VLDL CHOLESTEROL 27 mg/dL
== END 2021-01-16 09:32 | disposition home or self-care (01) ==
LOC: LAB 09:31
PROVIDERS: ATTEND Nurse Practitioner
DX: R39.15 Urgency of urination (principal); I25.10 Atherosclerotic heart disease of native coronary artery without angina pectoris; Z79.899 Other long term (current) drug therapy
CPT/HCPCS: 36415; 80053; 80061; 83721; 84153; 85025

== ENCOUNTER 2021-01-16 12:00 | Outpatient (CLI) | payer MEDICARE ==
--- NOTE | 2021-01-16 17:05 | Ultrasound Report ---
PROCEDURE: Duplex Lwr Ext Arterial Bilat INDICATIONS: PVD WITH CLAUDICATION TECHNIQUE: Color and pulse Doppler interrogation was performed of both lower extremity arterial systems, with im age documentation. COMPARISON: CT angiogram 10/06/2019. FINDINGS: Right lower extremity: Common femoral artery: 62 cm/sec, with triphasic flow. Deep femoral artery: 246 cm/sec, with biphasic flow. Proximal superficial femoral artery: 46 cm/sec, with biphasic flow. Mid superficial femoral artery: 86 cm/sec, with triphasic flow. Distal superficial femoral artery: 53 cm/sec, with triphasic flow. Popliteal artery: 32 cm/sec, with triphasic flow. Posterior tibial artery: 36 cm/sec, with triphasic flow. Anterior tibial artery/dorsalis pedis: 27/15 cm/sec, with triphasic/biphasic flow. Goins-scale imaging description: There is a moderate stenosis with at least 50% stenosis at the origi n of the right profunda femoris artery. Left lower extremity: Common femoral artery: 93 cm/sec, with triphasic flow. Deep femoral artery: 28 cm/sec, with biphasic flow. Proximal superficial femoral artery: 92 cm/sec, with triphasic flow. Mid superficial femoral artery: 120 cm/sec, with triphasic flow. Distal superficial femoral artery: 85 cm/sec, with triphasic flow. Popliteal artery: 47 cm/sec, with triphasic flow. Posterior tibial artery: 40 cm/sec, with triphasic flow. Anterior tibial artery/dorsalis pedis: 42/18 cm/sec, with triphasic/biphasic flow. Goins-scale imaging description: Stent noted left superficial femoral artery reportedly placed in . IMPRESSION: There is a relatively high-grade stenosis with elevated arterial flow velocity at the profunda femori s artery origin on the right with flow velocity measuring up to 246 cm/s. More inferiorly the arteria l vasculature shows biphasic and triphasic flow without evidence of right lower extremity arterial in sufficiency. The left superficial femoral artery contains a stent partially visualized, with patent flow through t he stent and without evidence of high-grade stenosis or loss of triphasic flow below the level of the stent. Overall the left lower extremity currently does not show evidence of significant arterial ins ufficiency. Reviewed by: Jr Benitez MD on 01/16/2021 5:03 PM PST Approved by: Jr Benitez MD on 01/16/2021 5:03 PM PST Station ID: [id number]
== END 2021-01-16 12:01 | disposition home or self-care (01) ==
LOC: DI 12:00
PROVIDERS: ATTEND Nurse Practitioner
DX: I73.9 Peripheral vascular disease, unspecified (principal); R39.15 Urgency of urination; I25.10 Atherosclerotic heart disease of native coronary artery without angina pectoris; Z79.899 Other long term (current) drug therapy
CPT/HCPCS: 36415; 80053; 80061; 83721; 84153; 85025; 93925

== ENCOUNTER 2021-03-14 14:39 | Outpatient (CLI) | payer MEDICARE ==
--- NOTE | 2021-03-14 18:23 | XRAY Report ---
PROCEDURE: Hand 3 View RT INDICATIONS: R FINGER PX TECHNIQUE: 3 views of the hand(s) acquired. COMPARISON: 01/27/2020 FINDINGS: Bones: No acute fractures or dislocations. Old healed fracture involving fifth metacarpal bone is ag ain seen. 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 Moderate to sever e osteoarthritic changes are noted in radiocarpal joint, distal radioulnar joint and first CMC joint. Osteoarthritic changes also noted in first through third MCP joints. Subtle erosive changes are note d along ulnar aspect of third MCP joint. Juxta-articular osteopenia is seen throughout MCP joints and interphalangeal joints. No suspicious bony lesions. Soft tissues: No suspicious soft tissue calcifications. 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 Reviewed by: Anthony Gomez MD on 03/14/2021 5:21 PM AKDT Approved by: Anthony Gomez MD on 03/14/2021 5:21 PM AKDT Station ID: [id number]
== END 2021-03-14 14:40 | disposition home or self-care (01) ==
LOC: DI.N 14:39
PROVIDERS: ATTEND Family Medicine
DX: M19.041 Primary osteoarthritis, right hand (principal); M19.031 Primary osteoarthritis, right wrist

== ENCOUNTER 2021-03-28 13:06 | Outpatient (CLI) | payer MEDICARE ==
--- NOTE | 2021-03-28 16:34 | CT Report ---
PROCEDURE: CHEST WO INDICATIONS: PULMONARY NODULE TECHNIQUE: Noncontrast 5 mm thick sections acquired from the pulmonary apices to the posterior costophrenic angl es. 7 mm thick coronal and sagittal MIP reformats were then acquired. For radiation dose reduction, the following was used: automated exposure control, adjustment of mA and/or kV according to patient size. COMPARISON: 05/25/2020 FINDINGS: Image quality: Excellent. Lungs and pleura: No acute air space opacities. Moderate apical predominant emphysema. Mild basilar predominant interstitial pulmonary opacity. No change in 6 mm diameter subpleural nodule within the l eft lower lobe posteriorly. No new pulmonary nodular densities are present. No pleural effusions or pneumothorax. Central and peripheral airways are patent and normal in caliber. Mediastinum: Heart size is normal. Moderate catheters chronic calcification of the coronary vascula ture. No pericardial effusion. No mediastinal adenopathy by size criteria. Thoracic aorta and centr al pulmonary arteries are normal in size. Esophagus is normal in caliber. No hiatal hernia. Bones and chest wall: No suspicious bony lesions. No acute vertebral body compression fractures. N o axillary or supraclavicular adenopathy by size criteria. The thyroid is normal in size. Abdomen: Visualized upper abdominal solid organs and bowel loops appear normal in the absence of con trast. IMPRESSION: 1. No change in left posterior lung base nodule. 2. No change in mild chronic interstitial fibrosis. 3. Emphysema. 4. Coronary artery disease. Reviewed by: Leela Chu MD on 03/28/2021 4:32 PM PDT Approved by: Leela Chu MD on 03/28/2021 4:32 PM PDT Station ID: [id number]
== END 2021-03-28 13:07 | disposition home or self-care (01) ==
LOC: DI 13:06
PROVIDERS: ATTEND Family Medicine
DX: R91.1 Solitary pulmonary nodule (principal); J84.10 Pulmonary fibrosis, unspecified; J43.9 Emphysema, unspecified; I25.10 Atherosclerotic heart disease of native coronary artery without angina pectoris

== ENCOUNTER 2021-06-29 09:36 | Outpatient (CLI) | payer MEDICARE ==
[2021-06-29 10:33] VITALS: BP 132/87
--- NOTE | 2021-06-29 10:33 | SLEEP CARE CONSULTATION ---
Information from patient questionnaire entered by Wilda Ho. I have reviewed and concur with the information entered by Wilda Ho. This document represents the service I personally performed and the decisions made by me, Katheryn Diaz ARNP. History of Present Illness Service Date and Time: 06/29/2021 0936 Reason for Visit: New patient Chief Complaint: reports: Snoring, Observed pauses in breathing, Fatigue, Frequent awakenings at night Date of Onset: 16 years plus Usual bedtime: 10 pm Time it takes to fall asleep: with night medications, 10 minutes Snores at night: Yes Observed to quit breathing while asleep: Yes Sleeps alone due to snoring: Yes Number of times waking at night: 5 Reasons for waking at night: reports: Bathroom Toss, Turn, or Twitch while sleeping: No Recalls having dreams: Yes Usually gets out of bed at: [id number] Feels refreshed in the morning: Yes Morning headache: No Sleepy or fatigued during the day: No Ever fallen asleep while driving: No Takes day naps: No Prior sleep studies: Yes Year and Where: 2002 or 1980 - [facility] in [place], [place] Additional HPI information: I had the pleasure of seeing CRYSTAL VARGAS today regarding the possibility of him having a sleep disorder. His current complaints are frequent night awakenings to void. He has been having evaluations of mental and physical health. He was seen some providers at [facility] and found in a mental test and other tests that he had something pointing toward sleep apnea. He did have a sleep study with [facility] which put him on a CPAP machine. He used it until he moved to [place] 16 years ago. He only used it for 6 months or so. He wakes up 4-5 times a night to use bathroom. He has depression/anxiety/anger issues which may be connected to him having apneas. He has lost weight in the interim years since his last sleep study. He has history of lung cancer and heart attack. He does snore and has pauses in breathing according to his life partner. She sleeps in another shala m due to the loud snoring. He feel somewhat refreshed in the mornings, but has fatigue/tiredness during the day. - Parasomnia Symptoms Ever been unable to move upon waking from sleep: No Walks in sleep: No Talks in sleep: No Ever acted out dreams in sleep: No Ever felt weak in the knees when startled or emotional: Yes Bothered by creepy, crawly, restless sensations in legs: No Problems with memory or concentration: Yes (mostly memory) Subjective Initial [place] Sleepiness Scale score: 3 (in 2020) Past Medical History Past Medical History: reports: Hypertension, Arthritis, Fibromyalgia, Anxiety, Depression, Emphysema, Other (peripheral vascular disease) Social History The patient's occupation is a Retired. Patient is and lives in [place]. Have you smoked in the past 12 months: No Cigarettes per day (20/pack): 20 Years of smokin Smoking Pack Years: 30.0 Alcohol use: No Caffeine use: Yes Caffeine amount and frequency: 3-4 cups daily Family History Family history of sleep disordered breathing: No Allergies and Home Medications Drug allergies reviewed: Yes (Nsaids) Home medication list reviewed: Yes Allergy and home medication list: Trazodone Lisinopril Omeprazole Bupropion Tylenol Clopidogrel Low dose aspirin Donepezil Rosuvastatin Centrum Multivitamins Accuvite Review of Systems Cardiovascular: reports: irregular heart rate or pulse Respiratory: reports: shortness of breath, chronic cough Gastrointestinal: reports: diarrhea Urinary: reports: frequency, impotence Psychiatric: reports: anxiety, depression, mood disorder Ear/Nose/Throat: reports: tonsillectomy Endocrine: reports: sluggishness, increased urination Physical Exam Blood Pressure: 132/87 Cuff size: wrist Heart Rate: 68 O2 Saturation: 98 Height: 5 ft 10 in Weight: 136 lb Body Mass Index: 19.5 BMI Classification: Healthy weight Neck circumference: 14.75 (inches) Nostrils: patent to airflow Mouth and throat: narrow oropharynx Soft palate: long Hard palate: normal Uvula: normal Uvula visualization: 25% Mallampati Class III Tongue: enlarged in size with teeth ruiz on lateral edges Tonsils: absent bilaterally Neck: normal w/o lymphadenopathy or thyromegaly Heart: regular rate and rhythm Lungs: clear bilaterally Impression and Plan 1. Suspected Obstructive Sleep Apnea-Hypopnea Syndrome, as previously diagnosed and as suggested by a continued history of loud and irregular snoring, observed cessation of breath while asleep, frequent awakening during the night, and cognitive impairment. Narrow oropharynx and obesity are common predisposing factors for obstructive sleep apnea-hypopnea syndrome. I recommend proceeding to polysomnography to confirm the diagnosis and to assess severity. If the patient has significant sleep disordered breathing, a manual CPAP titration study will also be performed to find the optimal treatment pressure. I informed the patient of what the sleep studies involve and after some discussion, obtained agreement to proceed. The pathophysiology of obstructive sleep apnea-hypopnea syndrome was discussed with the patient and health risks of cardiovascular and cerebrovascular disease if not treated. Risks of drowsy driving discussed in detail and patient advised to avoid long distance driving and to rod puller and coiler at the first sign of drowsiness. Patient agreed to plan. * Schedule polysomnography +- manual CPAP titration study and return in 1-2 weeks after the study to discuss result and initiate therapy. * Avoid long distance driving or driving when feeling sleepy. * Avoid sedative and muscle relaxant around bedtime. * Maintain a healthy weight. * Review instructions provided by trained office staff on how to prepare for the sleep study. * Return for follow-up after sleep study completed. Counseling Topics: Weight control Visit Type: In Office Time Spent with Patient (minutes): 35 Provider Statement: I spent 100% of the Face to Face Visit with the patient with greater than 50% spent counseling the patient and coordination of care.
== END 2021-06-29 09:37 | disposition home or self-care (01) ==
LOC: SC 09:36
PROVIDERS: ATTEND Nurse Practitioner Family
DX: G47.33 Obstructive sleep apnea (adult) (pediatric) (principal)
CPT/HCPCS: 99203; G0463; 99212

== ENCOUNTER 2021-07-14 13:01 | Outpatient (CLI) | payer MEDICARE | END 2021-07-14 13:02 | disposition home or self-care (01) | LOC: SC 13:01 | PROVIDERS: ATTEND Nurse Practitioner Family | DX: G47.33 Obstructive sleep apnea (adult) (pediatric) (principal); R09.02 Hypoxemia | CPT/HCPCS: G0399 ×2; 95806 ==

== ENCOUNTER 2021-07-27 11:22 | Outpatient (CLI) | payer MEDICARE ==
--- NOTE | 2021-07-27 11:47 | SLEEP CARE CONSULTATION ---
Information from patient questionnaire entered by Wilda Ho. I have reviewed and concur with the information entered by Wilda Ho. This document represents the service I personally performed and the decisions made by , Katheryn Diaz ARNP. History of Present Illness Service Date and Time: 07/27/2021 1120 Initial [place] Sleepiness Scale score: 3 (in 2020) Current [place] Sleepiness Scale score: 3 Additional HPI information: CRYSTAL VARGAS returns with spouse via Telehealth visit for follow up and results of the recently performed home sleep study. I explained the pathophysiology behind obstructive sleep apnea. We then spent quite a bit of time discussing different treatment options. For mild obstructive sleep apnea, surgery and oral appliance are alternatives to nasal CPAP therapy but in moderate or severe cases, nasal CPAP is the most effective and reliable treatment. After some discussion, the patient opted to go with the nasal CPAP therapy. Nasal autoCPAP set at 4-15 cmH20 will be ordered with rationale explained. A manual titration study will be ordered if unable to find optimal pressure with office adjustments. I explained how CPAP machine works with sample devices RespirPrePlay Dreamstation and Xopik [id number] and what to expect when using the machine. Using CPAP every night in order to get used to it was emphasized. Patient advised to put CPAP mask on before getting into bed so as not to fall asleep without CPAP. To assist acclimation to CPAP use, it could also be used for a short time during day while reading or watching TV. The patient was instructed to call the CPAP supplier to discuss any mechanical problem that may occur. If the mask given is uncomfortable or is difficult to keep on through the night even with adjustment, contact the CPAP supplier as many will replace with another mask style if notified before 30 days. If snoring or perceives is not getting enough air or too much air from the machine, notify this office. Patient was cautioned about risks of drowsy driving until sleepiness symptoms resolve. Sleep Study - Results Type of Sleep Study: Home sleep study Prior sleep studies: Yes Year and Where: 2002 or 1980 - [facility] in [place], [place] Polysomnography/Home Sleep Study results: Physician Impression: The quality of the study is good. The length of the study is adequate (> 240 minutes). Please also see the tabulated and graphic data. 1. Obstructive Sleep Apnea-Hypopnea (ICD-10 G47.33), mild, with an AHI of 8.9/hr and miller SaO2 of 89%. During the study, the patient had 35 apneas (35 obstructive, 0 central, 0 mixed) and 4 hypopneas. The longest episode lasted 69.5 seconds. The patient did not sleep supine during this study (supine AHI was 0, and non-supine, 8.88). 2. Hypoxemia (ICD-10 R09.02), minimal, with the lowest oxygen saturation of 89 % and 0.5 minutes with SaO2 under 90%. Baseline oxygen saturation was normal (Average oxygen saturation was 94%). Allergies and Home Medications Home medication list reviewed: Yes (no changes) Review of Systems Review of systems same as previous: Yes (no changes) Physical Exam Vital signs obtained and entered by: Telehealth visit to reduce exposure during Covid pandemic Height: 5 ft 10 in Impression and Plan 1. Obstructive Sleep Apnea-Hypopnea Syndrome, mild, with lowest oxygen saturation of 89%. Obviously this is the cause of the patients symptoms of unrefreshed sleep, and excessive daytime sleepiness. Positive pressure therapy could benefit hypertension, fibromyalgia, anxiety and depression. As mentioned above, the patient will be started on nasal autoCPAP therapy with pressure set at 4-15 cmH2O. A manual titration study will be completed if unable to find optimal treatment pressure with office adjustments. Compliance guidelines also reviewed. A copy of compliance guidelines will be given for reference at check out. * Nasal auto CPAP therapy, pressure at 4-15 cm H2O. * Attempt to lose weight. * Avoid alcohol consumption near bedtime. * Avoid supine sleep until using CPAP. * The patient is again cautioned about driving until sleepiness completely resolves. * Return one month after CPAP obtained. I will assess response to therapy and compliance at that time. Counseling Topics: Weight loss health impact Visit Type: Telehealth Video Video Type: VSee Patient Location: Home Other Participants: Spouse/Significant Other Location of Provider: Office Patient agrees and consents to this telehealth visit type: Yes Patient agrees to have their insurance billed: Yes Time Spent with Patient (minutes): 23 Provider Statement: I spent 100% of the Telehealth Video Call with the patient with greater than 50% spent counseling the patient and coordination of care.
== END 2021-07-27 11:23 | disposition home or self-care (01) ==
LOC: SC 11:22
PROVIDERS: ATTEND Nurse Practitioner Family
DX: G47.33 Obstructive sleep apnea (adult) (pediatric) (principal)

== ENCOUNTER 2021-08-17 16:30 | Outpatient (CLI) | payer MEDICARE ==
[2021-08-18 13:46] LABS: FECAL OCCULT BLOOD (FIT) NEGATIVE (NEGATIVE)
== END 2021-08-17 23:59 | disposition home or self-care (01) ==
LOC: LAB.WCP 16:30
PROVIDERS: ATTEND Family Medicine
DX: Z12.11 Encounter for screening for malignant neoplasm of colon (principal)
CPT/HCPCS: 82274

== ENCOUNTER 2021-10-17 12:42 | Outpatient (CLI) | payer MEDICARE ==
--- NOTE | 2021-10-17 13:34 | SLEEP CARE CONSULTATION ---
Information from patient questionnaire entered by Kelsey Hardy MA. I have reviewed and concur with the information entered by Kelsey Hardy MA. This document represents the service I personally performed and the decisions made by , Katheryn Diaz ARNP. History of Present Illness Service Date and Time: 10/17/2021 1242 Previous diagnosis: Mild, Obstructive Sleep Apnea-Hypopnea Syndrome AHI: 8.9 (2020) Reason for follow up: first compliance, three month (3 month follow up, possible first compliance appointment.) Equipment type: CPAP Mask style: Nasal Prior sleep studies: Yes Year and Where: 2002 or 1980 - [facility] in [place], [place] Type of Sleep Study: Home sleep study HPI additional information: CRYSTAL VARGAS was diagnosed to have mild, AHI 8.9, obstructive sleep apnea-hypopnea syndrome and returned today for CPAP therapy follow-up. He received his CPAP about a week ago and needs assistance to know how to assemble his machine and how to wear his new mask. Sleep Study - Results Type of Sleep Study: Home sleep study Prior sleep studies: Yes Year and Where: 2002 or 1980 - [facility] in [place], [place] CPAP Compliance Data Compliance data discussion: Patient just received his machine 1 week ago and has not yet started therapy. Subjective Initial [place] Sleepiness Scale score: 3 (in 2020) Current [place] Sleepiness Scale score: 1 (2020) Allergies and Home Medications Known drug allergies: Yes (NSAIDS) Home medication list reviewed: Yes (memantine 5 mg 2x daily) Review of Systems Review of systems same as previous: Yes (no change) Physical Exam Vital signs obtained and entered by: BARBARA Laird Blood Pressure: 124/68 (left) Cuff size: wrist Heart Rate: 89 O2 Saturation: 97 (with mask) Height: 5 ft 10 in Weight: 138 lb Body Mass Index: 19.8 BMI Classification: Healthy weight Impression and Plan 1. Obstructive Sleep Apnea-Hypopnea Syndrome, mild. Patient just needing guidance/teaching on how to put his machine together and wear his new mask. He and his partner tried to do this at home and got very confused on how it works. I showed patient how to assemble the machine and attach the mask. I showed him how to adjust him mask to his head/face. He stated that he felt he could start it now. He will start using it tonight. I will have him make an appointment for his first compliance visit in about a month. Patient's apnea severity and rationale for treatment to reduce apnea, improve sleep quality and reduce cardiovascular and cerebrovascular events was reviewed. I also reviewed the benefit of consistent device use of CPAP for hypertension, fibromyalgia, depression and anxiety. * Continue auto CPAP pressure at 4-15 cmH2O * Notify me if snoring with mask or feeling that the pressure is too much or too little * Maintain a healthy weight * Call this office if any problems using CPAP * Return for follow up in 1-2 months, or sooner if concerns arise Counseling Topics: Weight control Visit Type: In Office Time Spent with Patient (minutes): 29 Provider Statement: I spent 100% of the Face to Face Visit with the patient with greater than 50% spent counseling the patient and coordination of care.
[2021-10-17 13:35] VITALS: BP 124/68
== END 2021-10-17 12:43 | disposition home or self-care (01) ==
LOC: SC 12:42
PROVIDERS: ATTEND Nurse Practitioner Family
DX: G47.33 Obstructive sleep apnea (adult) (pediatric) (principal)
CPT/HCPCS: 99213; G0463; 99212

== ENCOUNTER 2021-11-22 08:00 | Outpatient (CLI) | payer MEDICARE ==
--- NOTE | 2021-11-22 13:44 | XRAY Report ---
PROCEDURE: Hip w/Pelvis 1V RT INDICATIONS: R HIP PX TECHNIQUE: AP pelvis with lateral view(s) of the right hip(s). COMPARISON: Reference is made to the CT pelvis dated July 04, 2018. FINDINGS: BONES/JOINT: No acute, displaced fracture or dislocation. No widening of the pubic symphysis. The rig ht sacroiliac joint is patent. SOFT TISSUES: No focal abnormality. Vascular classifications are seen. Small calcifications overlying the greater trochanters, which may reflect calcific tendinopathy or enthesopathy. IMPRESSION: 1.No acute osseous abnormality. Reviewed by: Bhavin Clark MD on 11/22/2021 1:43 PM PST Approved by: Bhavin Clark MD on 11/22/2021 1:43 PM PST Station ID: [id number]
== END 2021-11-22 23:59 ==
LOC: DI.N 08:00
PROVIDERS: ATTEND Nurse Practitioner
DX: M25.551 Pain in right hip (principal)

== ENCOUNTER 2021-11-22 09:40 | Outpatient (CLI) | payer MEDICARE ==
--- NOTE | 2021-11-22 10:46 | SLEEP CARE CONSULTATION ---
Information from patient questionnaire entered by Kelsey Hardy MA. I have reviewed and concur with the information entered by Kelsey Hardy MA. This document represents the service I personally performed and the decisions made by , Katheryn Diaz ARNP. History of Present Illness Service Date and Time: 11/22/2021 0940 Previous diagnosis: Mild, Obstructive Sleep Apnea-Hypopnea Syndrome AHI: 8.9 Reason for follow up: first compliance ([facility]) Accompanied by: Spouse Equipment type: CPAP Mask style: Nasal Backup mask available: No (will need to keep old mask when replaced) Last cushion change: 6 weeks Prior sleep studies: Yes Year and Where: 2002 or 1980 - [facility] [place] Type of Sleep Study: Home sleep study HPI additional information: CRYSTAL VARGAS was diagnosed to have mild, AHI 8.9, obstructive sleep apnea-hypopnea syndrome and returned today with spouse for CPAP therapy first compliance follow-up. Sleep Study - Results Type of Sleep Study: Home sleep study Prior sleep studies: Yes Year and Where: 2002 or 1980 - [place], [place] CPAP Compliance Data - Data Reviewed with Patient Average duration of nightly device use: 7 HOURS 26 MINUTES Compliance rate %: 97 Current pressure setting (cmH2O): 4-15 (median 6.3, avg 10.7, max 12.4) Average residual AHI: 2.2 Central apnea: .3 Obstructive apnea: .6 Subjective Patient concerns: reports: condensation in mask/hose, dry mouth, nose, throat (dry throat). denies: aerophagia, mask discomfort, air blowing in eyes, mask leak noise, nasal congestion, epistaxis, other Observed to snore while using device: No Current pressure setting perceived as: comfortable On therapy, patient: reports: sleeping better (sleeping longer per his ), more rested overall. denies: drowsiness while driving Initial [place] Sleepiness Scale score: 3 (in 2020) Current [place] Sleepiness Scale score: 4 (2020) Allergies and Home Medications Drug allergies reviewed: Yes (Nsaids) Home medication list reviewed: Yes Allergy and home medication list: Flomax Prozac Rosuvastatin Review of Systems Review of systems same as previous: No (sore adn weak right hip) Physical Exam Vital signs obtained and entered by: Madhu JIMENEZ AAMA Blood Pressure: 141/82 (left) Cuff size: wrist Heart Rate: 63 O2 Saturation: 97 (with mask) Height: 5 ft 10 in Weight: 131 lb (with clothes) Body Mass Index: 18.8 BMI Classification: Healthy weight Impression and Plan 1. Obstructive Sleep Apnea-Hypopnea Syndrome, mild, with good treatment compliance and good apnea control. On CPAP therapy, the patient has better sleep quality and is more rested overall. He tried a full face mask as suggested by Danial Plunkett. He does not like it as well as the over the nose nasal mask because it is harder for him to put on. He is going to decide which one he will continue with. He gets some dry throat. Oral dryness can be reduced by adjusting humidity setting higher or heated hose lower or by adjusting both settings. Printed instructions given on how to change humidity and heated hose settings with rationale explaining why to change. The patients pressure will be changed to autoCPAP 8-12 cmH20 to reflect the pressures being used. Patient advised to contact me if pressure change is uncomfortable so that it can be adjusted. Goals for apnea control discussed.Patient's apnea severity and rationale for treatment to reduce apnea, improve sleep quality and reduce cardiovascular and cerebrovascular events was reviewed. I also reviewed the benefit of consistent device use of CPAP for hypertension, depression, anxiety, and fibromyalgia. * Change auto CPAP pressure to 8-12 cmH2O * Notify me if snoring with mask or feeling that the pressure is too much or too little * Maintain a healthy weight * Call this office if any problems using CPAP * Return for follow up in 1-2 months, or sooner if concerns arise Counseling Topics: Spare mask, Weight control Time Spent with Patient (minutes): 25
[2021-11-22 10:47] VITALS: BP 141/82
== END 2021-11-22 09:41 | disposition home or self-care (01) ==
LOC: SC 09:40
PROVIDERS: ATTEND Nurse Practitioner Family
DX: G47.33 Obstructive sleep apnea (adult) (pediatric) (principal)
CPT/HCPCS: 99213; G0463; 99212